=== PATIENT | male | born 1965 | race Caucasian/White ===

== ENCOUNTER 2016-08-21 16:02 | Inpatient (IN) | payer OTHER ==
[~2016-08-21] VITALS: Ht 182.9 cm; Wt 165.7 kg
--- NOTE | 2016-08-21 18:56 | EMERGENCY ROOM VISIT NOTE ---
History Report prepared by Rudy: Elisha Hobson Under the Supervision of: Dr. Nik Villarreal D.O. First contact with patient: 18:06 Chief Complaint: SHORTNESS OF BREATH Stated Complaint: SHORTNESS OF BREATH Nursing Triage Summary: Patient ambulatory to triage with a steady and upright gait, states "I can't breathe. This started a couple of days ago and has been getting worse. I wonder if I have PNX because my lungs feel congested. It's really bad today. Once in a while, I cough but am not bringing anything up with it." Patient reports burning in the center of his chest when the shortness of breath starts. Patient reports shortness of breath with exertion. History of Present Illness The patient is a 51 year old male who presents to the Emergency Room with complaints of constant shortness of breath beginning 2 days ago. The patient states that the shortness of breath came on suddenly with exertion 2 days ago. 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 He complains of chest burning with shortness of breath, and a non-productive occasional cough. He notes that his shortness of breath is completely resolved with rest. The patient denies any fever, chills, chest pain, nausea, vomiting, swelling in the legs, recent travel, weight gain, history of blood clots, and pain in the legs. He notes that he has a history of sleep apnea and hypertension. Source of History: patient Onset: 2 days ago Position: other (global) Quality: other (SOB) Timing: constant Modifying Factors (Worsening): exertion Modifying Factors (Relieving): rest Associated Symptoms: + cough, No fevers, No chills, No chest pain, No nausea , No vomiting Note: Pt complains of chest burning with SOB. The patient denies any swelling in the legs, recent travel, weight gain, history of blood clots, and pain in the legs Review of Systems See HPI for pertinent positives & negatives. A total of 10 systems reviewed and were otherwise negative. Past Medical & Surgical Medical Problems: (1) Hypertension Family History No pertinent family history stated. Social History Smoking Status: Never Smoker Smokeless Tobacco Use: No Alcohol Use: occasionally Drug Use: none Marital Status: Occupation Status: employed Current/Historical Medications Scheduled Fenofibrate (Tricor ), 134 MG PO DAILY Lisinopril (Zestril), 20 MG PO DAILY Simvastatin (Zocor), 20 MG PO QPM Triamterene/Hctz (Triamterene/Hydrochloroth), 0.5 TAB PO DAILY Allergies Coded Allergies: Penicillins (Verified Allergy, Mild, Hives, 08/21/16) Physical Exam Vital Signs Date Time Temp Pulse Resp B/P (MAP) Pulse Ox O2 Delivery O2 Flow Rate FiO2 08/21/16 23:25 77 23 118/68 100 Non-Rebreather 15.0 08/21/16 23:21 75 08/21/16 22:26 78 21 111/68 94 Room Air 08/21/16 21:45 65 32 08/21/16 21:40 67 14 08/21/16 21:00 77 14 109/81 92 Room Air 08/21/16 20:00 81 13 118/78 92 Room Air 08/21/16 19:04 79 08/21/16 18:52 Room Air 08/21/16 18:52 80 17 101/63 92 Room Air 08/21/16 16:14 93 Room Air 08/21/16 16:11 36.7 84 20 121/79 92 Room Air Physical Exam GENERAL: Patient is awake, alert, and in no acute distress. Patient is resting comfortably and showing no signs of anxiety EYES: The conjunctivae are clear. The pupils are round and reactive. EARS, NOSE, MOUTH AND THROAT: The nose is without any evidence of any deformity. Mucous membranes are moist tongue is midline NECK: The neck is nontender and supple. RESPIRATORY: Normal respiratory effort is noted there is no evidence of wheezing rhonchi or rales CARDIOVASCULAR: Regular rate and rhythm noted there no murmurs rubs or gallops normal S1 normal S2 GASTROINTESTINAL: The abdomen is soft. Bowel sounds are present in all quadrants. Abdomen is nontender MUSCULOSKELETAL/EXTREMITIES: There is no evidence of gross deformity full range of motion is noted in the hips and shoulders SKIN: There is no obvious evidence of any rash. There are no petechiae, pallor or cyanosis noted. Trace pedal edema noted bilaterally, no calf tenderness elicited NEUROLOGIC: Patient is awake alert and oriented x3 Medical Decision & Procedures ER Provider Diagnostic Interpretation: Radiology results as stated below per my review and radiologist interpretation: CHEST ONE VIEW PORTABLE FINDINGS: The heart is at the upper limits of normal in size. There is mild prominence of the proximal right pulmonary artery. This could indicate pulmonary arterial hypertension. There is no focal pulmonary consolidation. There are no pleural effusions. There is no pneumothorax. There is no failure.[ IMPRESSION: AP portable study. No evidence of focal pulmonary consolidation. No evidence of failure. Electronically signed by: Mainor Payton M.D. 08/21/2016 7:17 PM Dictated Date/Time: 08/21/2016 7:[address] ANGIOGRAM OF THE CHEST FINDINGS: No pathologically enlarged axillary mediastinal or hilar lymph nodes were visualized. There was no evidence of thoracic aortic dilatation. There are large bilateral pulmonary artery filling defects involving both upper lobes right middle lobe and both lower lobes. No pleural effusions are visualized. There was no evidence of focal pulmonary consolidation. There is a 4 mm solid right lower lobe pulmonary nodule, as visualized in image #[id number].. IMPRESSION: 1. Moderately extensive bilateral pulmonary emboli. 2. 4 mm solid right lower lobe pulmonary nodule Please refer to below summary of Fleischner criteria recommendations for follow-up of incidental CT nodules (Carloz Rush, Guidelines for management of small pulmonary nodules detected on CT scans: A statement from the Fleischner Society, Radiology 237: [phone].) SOLID NODULES Solitary nodule size: <6 mm * low risk patients: no follow-up needed * high risk patients: optional CT at 12 months Solitary nodule size: 6-8 mm * low risk patients: follow-up at 6-12 months, then consider further follow-up at 18-24 months * high risk patients: initial follow-up CT at 6-12 months and then at 18-24 months if no change Solitary nodule size: >8 mm * either low or high risk patients - consider follow-up CT at 3 months, and/or CT-PET, and/or biopsy Multiple nodules size: <6 mm * low risk patients: no routine follow-up * high risk patients: optional CT at 12 months Multiple nodules size: 6-8 mm * low risk patients: follow-up at 3-6 months, then consider further follow-up at 18-24 months * high risk patients: follow-up at 3-6 months, then at 18-24 months if no change Multiple nodules size: >8 mm * low risk patients: follow-up at 3-6 months, then consider further follow-up at 18-24 months * high risk patients: follow-up at 3-6 months, then at 18-24 months if no change Note: newly detected indeterminate nodule in persons 35 years of age or older. * low risk patients: minimal or absent history of smoking and/or other known risk factors * high risk patients: history of smoking or of other known risk factors (e.g. first degree relative with lung cancer, or exposure to asbestos, radon, uranium) * if a nodule up to 8 mm is partly solid or is ground glass further follow-up is required after 24 months to exclude possible slow growing adenocarcinoma ([facility]) SUBSOLID NODULES Solitary pure ground-glass nodule * nodule size <6 mm - no CT follow-up required * nodule size >=6 mm - follow-up CT at 6-12 months, then every 2 years until 5 years Solitary part-solid nodule * nodule size <6 mm - no CT follow-up required * nodule size >=6 mm - follow-up CT at 3-6 months. If unchanged, and solid component remains <6 mm, then annual follow-up for 5 years Multiple subsolid nodules * nodule size <6 mm - follow-up CT at 3-6 months, consider further follow-up at 2 and 4 years if stable * nodule size >=6 mm - follow-up CT at 3-6 months, subsequent management based on the most suspicious nodule(s) Electronically signed by: Mainor Payton M.D. 08/21/2016 9:27 PM Dictated Date/Time: 08/21/2016 9:[address] FACIAL BONES-MXILLOFAC WITHOUT COMPARISON STUDY: No previous studies for comparison. TECHNIQUE: Helical images were acquired in the transverse plane. The study was reviewed and analyzed on the independent 3-D workstation. The pterygoid plates appear intact. The zygomatic arches appear intact. The globes appear intact. 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 There are comminuted nasal bone fractures. There is a nondepressed right orbital floor fracture. There is no evidence of intramuscular entrapment The mandibular condyles appear intact. IMPRESSION: 1. Comminuted nasal bone fractures 2. Nondepressed right orbital floor fracture Electronically signed by: Mainor Payton M.D. 08/21/2016 10:21 PM Dictated Date/Time: 08/21/2016 10:[address] HEAD WITHOUT CONTRAST (CT) FINDINGS: No intra or extra-axial mass lesions are visualized. There is no CT evidence of acute cortical infarction. There is no evidence of midline shift. There is no acute hemorrhage. No calvarial fractures are visualized. There are patchy white matter hypodensities likely on a small vessel basis. There is no evidence of pathologic ventricular dilatation. There is a right maxillary sinus air-fluid level. There are nasal bone fractures. There is a probable right maxillary sinus fracture. 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 There is a cavum septa pellucida and cavum vergae. There is vascular enhancement secondary to a prior CT angiographic study of the chest There are distal vertebral calcifications. IMPRESSION: 1. Nasal bone fractures and possible right maxillary sinus fracture. 2. No evidence of acute intracranial injury. Electronically signed by: Mainor Payton M.D. 08/21/2016 10:15 PM Dictated Date/Time: 08/21/2016 10:[address] OF THE CERVICAL SPINE FINDINGS: The visualized portions of the lung apices reveal no evidence of pneumothorax. There is opacification of the right maxilla sinus The prevertebral soft tissues are normal. No fractures or subluxations are visualized. There are vertebral artery calcifications. IMPRESSION: No evidence of acute fracture or traumatic subluxation. Electronically signed by: Mainor Payton M.D. 08/21/2016 10:18 PM Dictated Date/Time: 08/21/2016 10:16 PM Laboratory Results 08/21/16 19:00 Red Blood Count 5.05, Mean Corpuscular Volume 85.7, Mean Corpuscular Hemoglobin 28.7, Mean Corpuscular Hemoglobin Concent 33.5, Mean Platelet Volume 9.8, Neutrophils (%) (Auto) 64.2, Lymphocytes (%) (Auto) 23.5, Monocytes (%) (Auto) 8.3, Eosinophils (%) (Auto) 3.6, Basophils (%) (Auto) 0.2, Neutrophils # (Auto) 5.95, Lymphocytes # (Auto) 2.18, Monocytes # (Auto) 0.77, Eosinophils # (Auto) 0.33, Basophils # (Auto) 0.02 08/21/16 19:00 Test 08/21/16 19:00 White Blood Count 9.27 K/uL (4.8-10.8) Red Blood Count 5.05 M/uL (4.7-6.1) Hemoglobin 14.5 g/dL (14.0-18.0) Hematocrit 43.3 % (42-52) Mean Corpuscular Volume 85.7 fL (80-100) Mean Corpuscular Hemoglobin 28.7 pg (25-34) Mean Corpuscular Hemoglobin Concent 33.5 g/dl (32-36) Platelet Count 207 K/uL (130-400) Mean Platelet Volume 9.8 fL (7.4-10.4) Neutrophils (%) (Auto) 64.2 % Lymphocytes (%) (Auto) 23.5 % Monocytes (%) (Auto) 8.3 % Eosinophils (%) (Auto) 3.6 % Basophils (%) (Auto) 0.2 % Neutrophils # (Auto) 5.95 K/uL (1.4-6.5) Lymphocytes # (Auto) 2.18 K/uL (1.2-3.4) Monocytes # (Auto) 0.77 K/uL (0.11-0.59) Eosinophils # (Auto) 0.33 K/uL (0-0.5) Basophils # (Auto) 0.02 K/uL (0-0.2) RDW Standard Deviation 45.4 fL (36.4-46.3) RDW Coefficient of Variation 14.7 % (11.5-14.5) Immature Granulocyte % (Auto) 0.2 % Immature Granulocyte # (Auto) 0.02 K/uL (0.00-0.02) Prothrombin Time 10.9 SECONDS (9.0-12.0) Prothromb Time International Ratio 1.0 (0.9-1.1) Activated Partial Thromboplast Time 26.0 SECONDS (21.0-31.0) Partial Thromboplastin Ratio 1.0 D-Dimer 8410 ug/L FEU (0-500) Anion Gap 7.0 mmol/L (3-11) Est Creatinine Clear Calc Drug Dose 112.1 ml/min Estimated GFR () 79.5 Estimated GFR (Non- 68.6 BUN/Creatinine Ratio 12.4 (10-20) Calcium Level 9.1 mg/dl (8.5-10.1) Total Bilirubin 0.3 mg/dl (0.2-1) Aspartate Amino Transf (AST/SGOT) 27 U/L (15-37) Alanine Aminotransferase (ALT/SGPT) 50 U/L (12-78) Alkaline Phosphatase 72 U/L (45-117) Troponin I 0.074 ng/ml (0-0.045) Pro-B-Type Natriuretic Peptide 3393 pg/ml (0-900) Total Protein 7.5 gm/dl (6.4-8.2) Albumin 3.0 gm/dl (3.4-5.0) Globulin 4.5 gm/dl (2.5-4.0) Albumin/Globulin Ratio 0.7 (0.9-2) Laboratory results per my review. Medications Administered Medications (Trade) Dose Ordered Sig/Narcisa Route Start Time Stop Time Status Last Admin Dose Admin Aspirin (Aspirin Chew) 324 mg NOW STAT PO 08/21/16 19:59 08/21/16 20:00 DC 08/21/16 20:04 324 MG Sodium Chloride 1,000 ml @ 999 mls/hr Q1H1M STAT IV 08/21/16 21:31 08/21/16 22:31 DC 08/21/16 22:26 999 MLS/HR Heparin Sodium/ Dextrose (Heparin 25,000 Unit/500ml D5W) 25,000 unit STK-MED ONCE .ROUTE 08/21/16 22:53 08/21/16 22:54 DC 08/21/16 23:25 25,000 UNIT Procedure Location: Right infraorbital region Total length: 2cm Complexity: Simple Verbal consent was obtained after the risks and benefits were explained, including but not limited to bleeding, scarring, infection, pain, and bone/joint /nerve damage. At this time, the risks of the procedure are less than the risks of NOT performing the procedure. A time out was taken and the correct patient and site identified. The skin was prepped with betadine. The target area was anesthetized with 6 ml of 1% lidocaine without epinephrine. Copious irrigation was performed using normal saline. The skin was re-prepped with betadine and a sterile field set. The wound was explored for foreign bodies and none found. Examination revealed no injury to deep structures such as tendons, bone, or significant blood vessels. Debridement was not performed. The wound edges were approximated using 5, 5-0 simple interrupted nylon sutures. Hemostasis and excellent approximation was achieved. Antibacterial ointment and a sterile dressing applied. Detailed wound care instructions and signs and symptoms of infection reviewed with the patient. No complications and the patient tolerated the procedure well. ECG Indication: SOB/dyspnea Rate (beats per minute): 78 Rhythm: normal sinus Findings: T-wave inversion (Anterior), no ectopy Comparison ECG Date: no prior available ED Course 1805: The patient was evaluated in room A4B. A complete history and physical examination were performed. 1958: Aspirin 324mg PO. 2155: I updated and reevaluated the patient. 2008: I discussed the patient's case with Dr. Deshpande. The patient will be evaluated for further management. 2014: Upon reevaluation, the patient is doing well. I discussed results and treatment plan with the patient. He verbalizes agreement and understanding. I spoke with Dr. Deshpande of [facility]. The patient will be evaluated for further management and care. 2129: Heparin Sodium/Dextrose 1 ea. 2130: NSS 1,000 ml @ 999 mls/hr IV. 2139: The patient went to the bathroom and had a syncopal episode and fell onto his face. 2144: Lidocaine/Epinephrine 20ml INFIL. 2241: I spoke to Dr. Fuentes. He agreed that he will follow the patient and agrees with no bolus with the Heparin at this time. Medical Decision Differential diagnosis: Etiologies such as infections, reactive airway disease, pneumonia, pneumothorax , COPD, CHF, cardiac ischemia, pulmonary embolism, musculoskeletal, gastrointestinal, as well as others were entertained. Medication Reconciliation: I attest that I have personally reviewed the patient' s current medications list. Blood pressure screening: Patient was found to have normal blood pressure on screening and does not require follow-up. The patient is a 51-year-old male who presented to emergency department with a family member for an evaluation of dyspnea on exertion. The patient did not have significant tachycardia but had significant shortness of breath with any exertion. The patient had an EKG which did show T-wave abnormalities anteriorly. Initially I felt his condition was secondary to an acute coronary syndrome. The patient did have an elevated troponin. I discussed the patient's laboratory and radiographic studies with him. He was treated with aspirin in the emergency department. I discussed his case with the on-call [facility] hospitalist. They've agreed to evaluate the patient in the emergency department for further management and disposition. Given the patient's degree of shortness of breath and d-dimer was also ordered. This was elevated so a CT the chest was obtained. The patient had a CT the chest which did show signs of significant pulmonary embolism. IV heparin was ordered. The patient got out of bed on his own to go to the bathroom. Upon getting back into the bed the patient had a syncopal episode falling and striking his face on the floor. He had significant facial injury including facial contusion facial laceration and epistaxis as well as nasal bone fractures and orbital floor fractures. The patient was reevaluated after this occurred. Heparin was held until CTs of the head neck and facial bones could be obtained. I discussed the CT reports with the on-call oral maxillofacial specialist. At this time we will give the patient IV heparin without a bolus and continue to monitor him for any other worsening symptoms. I discussed this with the patient and at this time I feel the benefits outweigh the risks for anticoagulation. [facility] The patient was placed on a nonrebreather mask. The facial laceration was sutured. Consults Time Called: 2005 Consulting Physician: Dr. Jeramy Mayes Returned Call: 2008 I discussed the patient's case with Dr. Deshpande. The patient will be evaluated for further management. Additional Consults: Time Called: 2239 Consulted Physician: Dr. Fuentes Returned Call: [id number] Additional Comments: I spoke to Dr. Fuentes. He agreed that he will follow the patient and agrees with no bolus with the Heparin at this time. Impression Primary Impression: Pulmonary embolism Additional Impressions: Abnormal EKG Elevated troponin SOB (shortness of breath) Syncope Facial laceration Nasal bone fractures Orbital floor fracture Critical Care I have personally spent greater than 60 minutes of critical care time in the direct management of this patient. This includes bedside care, interpretation of diagnostic studies, and testing, discussion with consultants, patient, and family members, and other required patient management activities. This 60 minutes is in excess of all separately billable procedures. Scribe Attestation The scribe's documentation has been prepared under my direction and personally reviewed by me in its entirety. I confirm that the note above accurately reflects all work, treatment, procedures, and medical decision making performed by me. Departure Information Dispostion Being Evaluated By Hospitalist Laura Brennan M.D. (PCP) Patient Instructions My [facility] Problem Qualifiers Primary Impression: Pulmonary embolism Pulmonary embolism type: saddle Chronicity: acute Acute cor pulmonale presence: with acute cor pulmonale Qualified Codes: I26.02 - Saddle embolus of pulmonary artery with acute cor pulmonale Additional Impressions: Syncope Syncope type: unspecified Qualified Codes: R55 - Syncope and collapse Facial laceration Encounter type: initial encounter Qualified Codes: S01.81XA - Laceration without foreign body of other part of head, initial encounter Nasal bone fractures Encounter type: initial encounter Fracture type: closed Qualified Codes: S02.2XXA - Fracture of nasal bones, initial encounter for closed fracture Orbital floor fracture Encounter type: initial encounter Fracture type: closed Laterality: right Qualified Codes: S02.31XA - Fracture of orbital floor, right side, initial encounter for closed fracture
[2016-08-21] MEDS ORDERED: FENO134C2 PO (19:13)
[2016-08-21] MEDS ORDERED: SIMV20TA2 PO (19:13)
[2016-08-21] MEDS ORDERED: MXZ/ PO (19:13)
[2016-08-21] MEDS ORDERED: LISI-725 PO (19:13)
[2016-08-21 19:15] LABS: BASO % 0.2 %; BASO ABS # 0.02 K/uL (0-0.2); COMPLETE YES; EOS % 3.6 %; HEMATOCRIT 43.3 % (42-52); IG% 0.2 %; LYMPH % 23.5 %; LYMPH ABS # 2.18 K/uL (1.2-3.4); MEAN CELL VOLUME 85.7 fL (80-100); MEAN CORPUSCULAR HEMOGLOBIN 28.7 pg (25-34); MEAN CORPUSCULAR HGB CONC 33.5 g/dl (32-36); MEAN PLATELET VOLUME 9.8 fL (7.4-10.4); MONO % 8.3 %; NEUT % 64.2 %; PLATELET COUNT 207 K/uL (130-400); RED BLOOD COUNT 5.05 M/uL (4.7-6.1); WHITE BLOOD COUNT 9.27 K/uL (4.8-10.8)
--- NOTE | 2016-08-21 19:18 | DIAGNOSTIC IMAGING REPORT ---
CHEST ONE VIEW PORTABLE CLINICAL HISTORY: Respiratory failure. Shortness of breath. COMPARISON STUDY: No previous studies for comparison. FINDINGS: The heart is at the upper limits of normal in size. There is mild prominence of the proximal right pulmonary artery. This could indicate pulmonary arterial hypertension. There is no focal pulmonary consolidation. There are no pleural effusions. There is no pneumothorax. There is no failure.[ IMPRESSION: AP portable study. No evidence of focal pulmonary consolidation. No evidence of failure. Electronically signed by: Mainor Payton M.D. 08/21/2016 7:17 PM Dictated Date/Time: 08/21/2016 7:16 PM
[2016-08-21 19:25] LABS: PROTHROMBIN TIME (PATIENT) 10.9 SECONDS (9.0-12.0)
[2016-08-21 19:33] LABS: BUN/CREATININE RATIO 12.4 (10-20); CALCIUM 9.1 mg/dl (8.5-10.1); CREATININE 1.2 mg/dl (0.60-1.40); POTASSIUM 4.2 mmol/L (3.5-5.1)
[2016-08-21 19:48] LABS: ALB/GLOB RATIO 0.7 (0.9-2)
[2016-08-21] MEDS ORDERED: ASPIRIN 81 MG CHEW PO STA (19:59)
[2016-08-21] MEDS ORDERED: OPTIRAY 320 IV PRN (21:00)
--- NOTE | 2016-08-21 21:28 | DIAGNOSTIC IMAGING REPORT ---
CT ANGIOGRAM OF THE CHEST CLINICAL HISTORY: Atypical chest pain. Shortness of breath. COMPARISON STUDY: Chest x-ray dated 08/21/2016 TECHNIQUE: Following the IV administration of 116 mL of Optiray-320, CT angiogram of the thorax was performed from the thoracic inlet to the lung bases utilizing the pulmonary embolus protocol. Images are reviewed in the axial, sagittal, and coronal planes. IV contrast was administered without complication. MIP imaging was performed. CT DOSE: 887.14 mGy.cm FINDINGS: No pathologically enlarged axillary mediastinal or hilar lymph nodes were visualized. There was no evidence of thoracic aortic dilatation. There are large bilateral pulmonary artery filling defects involving both upper lobes right middle lobe and both lower lobes. No pleural effusions are visualized. There was no evidence of focal pulmonary consolidation. There is a 4 mm solid right lower lobe pulmonary nodule, as visualized in image #[id number].. IMPRESSION: 1. Moderately extensive bilateral pulmonary emboli. 2. 4 mm solid right lower lobe pulmonary nodule Please refer to below summary of Fleischner criteria recommendations for follow-up of incidental CT nodules (Carloz Rush, Guidelines for management of small pulmonary nodules detected on CT scans: A statement from the Fleischner Society, Radiology 237: [phone].) SOLID NODULES Solitary nodule size: <6 mm * low risk patients: no follow-up needed * high risk patients: optional CT at 12 months Solitary nodule size: 6-8 mm * low risk patients: follow-up at 6-12 months, then consider further follow-up at 18-24 months * high risk patients: initial follow-up CT at 6-12 months and then at 18-24 months if no change Solitary nodule size: >8 mm * either low or high risk patients - consider follow-up CT at 3 months, and/or CT-PET, and/or biopsy Multiple nodules size: <6 mm * low risk patients: no routine follow-up * high risk patients: optional CT at 12 months Multiple nodules size: 6-8 mm * low risk patients: follow-up at 3-6 months, then consider further follow-up at 18-24 months * high risk patients: follow-up at 3-6 months, then at 18-24 months if no change Multiple nodules size: >8 mm * low risk patients: follow-up at 3-6 months, then consider further follow-up at 18-24 months * high risk patients: follow-up at 3-6 months, then at 18-24 months if no change Note: newly detected indeterminate nodule in persons 35 years of age or older. * low risk patients: minimal or absent history of smoking and/or other known risk factors * high risk patients: history of smoking or of other known risk factors (e.g. first degree relative with lung cancer, or exposure to asbestos, radon, uranium) * if a nodule up to 8 mm is partly solid or is ground glass further follow-up is required after 24 months to exclude possible slow growing adenocarcinoma (MARKELL) SUBSOLID NODULES Solitary pure ground-glass nodule * nodule size <6 mm - no CT follow-up required * nodule size >=6 mm - follow-up CT at 6-12 months, then every 2 years until 5 years Solitary part-solid nodule * nodule size <6 mm - no CT follow-up required * nodule size >=6 mm - follow-up CT at 3-6 months. If unchanged, and solid component remains <6 mm, then annual follow-up for 5 years Multiple subsolid nodules * nodule size <6 mm - follow-up CT at 3-6 months, consider further follow-up at 2 and 4 years if stable * nodule size >=6 mm - follow-up CT at 3-6 months, subsequent management based on the most suspicious nodule(s) Electronically signed by: Mainor Payton M.D. 08/21/2016 9:27 PM Dictated Date/Time: 08/21/2016 9:22 PM
[2016-08-21] MEDS ORDERED: SODIUM CHLORIDE 0.9% 1000ML 1,000 ML IV STA (21:31)
[2016-08-21] MEDS ORDERED: LIDOCAINE/EPINEPHRINE 1% 20 ML VIAL INFIL ONE (21:45)
--- NOTE | 2016-08-21 22:16 | DIAGNOSTIC IMAGING REPORT ---
CT HEAD WITHOUT CONTRAST (CT) CLINICAL HISTORY: Head pain status post head trauma. Pulmonary embolism. COMPARISON STUDY: No previous studies for comparison. TECHNIQUE: Axial CT of the brain is performed from the vertex to the skull base. IV contrast was not administered for this examination. CT DOSE: 1682.88 mGy.cm FINDINGS: No intra or extra-axial mass lesions are visualized. There is no CT evidence of acute cortical infarction. There is no evidence of midline shift. There is no acute hemorrhage. No calvarial fractures are visualized. There are patchy white matter hypodensities likely on a small vessel basis. There is no evidence of pathologic ventricular dilatation. There is a right maxillary sinus air-fluid level. There are nasal bone fractures. There is a probable right maxillary sinus fracture. 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 There is a cavum septa pellucida and cavum vergae. There is vascular enhancement secondary to a prior CT angiographic study of the chest There are distal vertebral calcifications. IMPRESSION: 1. Nasal bone fractures and possible right maxillary sinus fracture. 2. No evidence of acute intracranial injury. Electronically signed by: Mainor Payton M.D. 08/21/2016 10:15 PM Dictated Date/Time: 08/21/2016 10:12 PM
--- NOTE | 2016-08-21 22:19 | DIAGNOSTIC IMAGING REPORT ---
CT OF THE CERVICAL SPINE CLINICAL HISTORY: Neck pain status post trauma COMPARISON STUDY: No previous studies for comparison. CT DOSE: TECHNIQUE: CT scan of the cervical spine was performed from the skull base to the thoracic inlet. Images are reviewed in the axial, sagittal, and coronal planes. IV contrast was not administered for this examination. FINDINGS: The visualized portions of the lung apices reveal no evidence of pneumothorax. There is opacification of the right maxilla sinus The prevertebral soft tissues are normal. No fractures or subluxations are visualized. There are vertebral artery calcifications. IMPRESSION: No evidence of acute fracture or traumatic subluxation. Electronically signed by: Mainor Payton M.D. 08/21/2016 10:18 PM Dictated Date/Time: 08/21/2016 10:16 PM
--- NOTE | 2016-08-21 22:22 | DIAGNOSTIC IMAGING REPORT ---
CT FACIAL BONES-MXILLOFAC WITHOUT CT DOSE: CLINICAL HISTORY: Facial pain status post trauma COMPARISON STUDY: No previous studies for comparison. TECHNIQUE: Helical images were acquired in the transverse plane. The study was reviewed and analyzed on the independent 3-D workstation. The pterygoid plates appear intact. The zygomatic arches appear intact. The globes appear intact. 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 There are comminuted nasal bone fractures. There is a nondepressed right orbital floor fracture. There is no evidence of intramuscular entrapment The mandibular condyles appear intact. IMPRESSION: 1. Comminuted nasal bone fractures 2. Nondepressed right orbital floor fracture Electronically signed by: Mainor Payton M.D. 08/21/2016 10:21 PM Dictated Date/Time: 08/21/2016 10:18 PM
[2016-08-21] MEDS ORDERED: HEPARIN 25000 UNIT/500 ML D5W ONE (22:53)
[2016-08-22] VITALS (15 sets, daily range): BP systolic 95–127; BP diastolic 51–88; PULSE 63–82; TEMP 36.3–36.6; O2SAT 90–99; Ht 182.9 cm; Wt 165.7 kg
[2016-08-22] MEDS ORDERED: SODIUM CHLORIDE 0.9% 1000ML 1,000 ML IV SCH (00:32)
[2016-08-22] MEDS ORDERED: ALUMINUM/MAGNESIUM/SIMETH (MAALOX MAX) 30 ML UDC PO PRN (00:45)
[2016-08-22] MEDS ORDERED: ONDANSETRON INJ 2 MG/ML 2 ML VIAL IV PRN (00:45)
[2016-08-22] MEDS ORDERED: ACETAMINOPHEN 325 MG TAB PO PRN (00:45)
[2016-08-22] MEDS ORDERED: POLYETHYLENE (MIRALAX) 17 GM PACK PO PRN (00:45)
[2016-08-22] MEDS ORDERED: MAGNESIUM HYDROXIDE SUSP 30 ML UDC PO PRN (00:45)
--- NOTE | 2016-08-22 02:37 | History and Physical ---
History & Physical Date & Time of Service: Aug 22, 2016 at 02:16 Chief Complaint: Facial Laceration,Nasal Bone Fractures,Pe Primary Care Physician: Laura Shelton M.D. History of Present Illness Source: patient, family This is a 51 year old obese male with a history of HTN, HLD presents with a few day history of dyspnea on exertion; states that he's had issues with his breathing nocturnally; but now exertion causes an issue. Upon presentation, noted to be hypoxic - d-dimer elevated. He had a CT of the chest and it showed acute bilateral PEs. Patient was doing okay in the ER, but then had a fall in the ER - he does not know why he fell, he was going to the bathroom, came back into bed, and then he fell forward onto his face. Developed nose bleed and R orbit laceration. CT of the facial bones showed orbital fracture and nasal fracture. Developed epistaxis which improved with pressure. After speaking with oromaxillofacial product management consultant, it was decided that we could start IV heparin. Patient is doing better after IV heparin started. No other complaints. Past Medical/Surgical History Medical Problems: (1) Hypertension Status: Chronic Social History Smoking Status: Never Smoker Smokeless Tobacco Use: No Drug Use: none Marital Status: Occupational Status: employed Allergies Coded Allergies: Penicillins (Verified Allergy, Mild, Hives, 08/21/16) Home Medications Scheduled Fenofibrate (Tricor ), 134 MG PO DAILY Lisinopril (Zestril), 20 MG PO DAILY Simvastatin (Zocor), 20 MG PO QPM Triamterene/Hctz (Triamterene/Hydrochloroth), 0.5 TAB PO DAILY Review of Systems Constitutional: No fever, No chills, No sweats, No weight loss, No weakness, No fatigue Respiratory: + shortness of breath, + dyspnea on exertion, No cough, No sputum , No wheezing, No dyspnea at rest, No hemoptysis Cardiovascular: No chest pain, No orthopnea, No edema, No palpitations Abdomen: No pain, No nausea, No vomiting, No diarrhea, No constipation Musculoskeletal: No joint pain, No muscle pain Genitourinary - Male: No hematuria, No dysuria, No urinary frequency, No urinary urgency Psychiatric: No depression symptoms, No anxiety, No insomnia Hematologic / Lymphatic: No abnormal bleeding/bruising Integumentary: No rash Allergic / Immunologic: No environmental allergies, No seasonal allergies Physical Exam Vital Signs Date Time Temp Pulse Resp B/P (MAP) Pulse Ox O2 Delivery O2 Flow Rate FiO2 08/22/16 01:24 36.6 71 22 124/83 91 Room Air 08/22/16 01:01 70 17 128/71 100 08/22/16 00:15 69 24 136/73 99 Non-Rebreather 15.0 08/21/16 23:25 77 23 118/68 100 Non-Rebreather 15.0 08/21/16 23:21 75 08/21/16 22:26 78 21 111/68 94 Room Air 08/21/16 21:45 65 32 08/21/16 21:40 67 14 08/21/16 21:00 77 14 109/81 92 Room Air 08/21/16 20:00 81 13 118/78 92 Room Air 08/21/16 19:04 79 08/21/16 18:52 Room Air 08/21/16 18:52 80 17 101/63 92 Room Air 08/21/16 16:14 93 Room Air 08/21/16 16:11 36.7 84 20 121/79 92 Room Air General Appearance: no apparent distress, + obese Head: + pertinent finding (R orbital bruising/swelling, laceration at inferior orbit, s/p sutures; nasal bruising) ENT: hearing grossly normal Neck: supple Respiratory/Chest: chest non-tender, lungs clear, normal breath sounds, no respiratory distress, no accessory muscle use Cardiovascular: regular rate, rhythm, no edema, no murmur, normal peripheral pulses Abdomen/GI: normal bowel sounds, non tender, soft Extremities/Musculoskelatal: no calf tenderness, normal capillary refill, no pedal edema Neurologic/Psych: no motor/sensory deficits, alert, normal mood/affect Skin: normal color Lymphatic: no adenopathy Diagnostics Laboratory Results Results Past 24 Hours Test 08/21/16 19:00 08/22/16 01:36 Range/Units White Blood Count 9.27 4.8-10.8 K/uL Red Blood Count 5.05 4.7-6.1 M/uL Hemoglobin 14.5 14.0-18.0 g/dL Hematocrit 43.3 42-52 % Mean Corpuscular Volume 85.7 80-100 fL Mean Corpuscular Hemoglobin 28.7 25-34 pg Mean Corpuscular Hemoglobin Concent 33.5 32-36 g/dl Platelet Count 207 130-400 K/uL Mean Platelet Volume 9.8 7.4-10.4 fL Neutrophils (%) (Auto) 64.2 % Lymphocytes (%) (Auto) 23.5 % Monocytes (%) (Auto) 8.3 % Eosinophils (%) (Auto) 3.6 % Basophils (%) (Auto) 0.2 % Neutrophils # (Auto) 5.95 1.4-6.5 K/uL Lymphocytes # (Auto) 2.18 1.2-3.4 K/uL Monocytes # (Auto) 0.77 0.11-0.59 K/uL Eosinophils # (Auto) 0.33 0-0.5 K/uL Basophils # (Auto) 0.02 0-0.2 K/uL RDW Standard Deviation 45.4 36.4-46.3 fL RDW Coefficient of Variation 14.7 11.5-14.5 % Immature Granulocyte % (Auto) 0.2 % Immature Granulocyte # (Auto) 0.02 0.00-0.02 K/uL Prothrombin Time 10.9 9.0-12.0 SECONDS Prothromb Time International Ratio 1.0 0.9-1.1 Activated Partial Thromboplast Time 26.0 21.0-31.0 SECONDS Partial Thromboplastin Ratio 1.0 D-Dimer 8410 0-500 ug/L FEU Sodium Level 138 136-145 mmol/L Potassium Level 4.2 3.5-5.1 mmol/L Chloride Level 104 98-107 mmol/L Carbon Dioxide Level 27 21-32 mmol/L Anion Gap 7.0 3-11 mmol/L Blood Urea Nitrogen 15 7-18 mg/dl Creatinine 1.20 0.60-1.40 mg/dl Est Creatinine Clear Calc Drug Dose 112.1 ml/min Estimated GFR () 79.5 Estimated GFR (Non- 68.6 BUN/Creatinine Ratio 12.4 10-20 Random Glucose 100 70-99 mg/dl Calcium Level 9.1 8.5-10.1 mg/dl Total Bilirubin 0.3 0.2-1 mg/dl Aspartate Amino Transf (AST/SGOT) 27 15-37 U/L Alanine Aminotransferase (ALT/SGPT) 50 12-78 U/L Alkaline Phosphatase 72 45-117 U/L Troponin I 0.074 0-0.045 ng/ml Pro-B-Type Natriuretic Peptide 3393 0-900 pg/ml Total Protein 7.5 6.4-8.2 gm/dl Albumin 3.0 3.4-5.0 gm/dl Globulin 4.5 2.5-4.0 gm/dl Albumin/Globulin Ratio 0.7 0.9-[address] ANGIOGRAM OF THE CHEST CLINICAL HISTORY: Atypical chest pain. Shortness of breath. COMPARISON STUDY: Chest x-ray dated 08/21/2016 TECHNIQUE: Following the IV administration of 116 mL of Optiray-320, CT angiogram of the thorax was performed from the thoracic inlet to the lung bases utilizing the pulmonary embolus protocol. Images are reviewed in the axial, sagittal, and coronal planes. IV contrast was administered without complication. MIP imaging was performed. CT DOSE: 887.14 mGy.cm FINDINGS: No pathologically enlarged axillary mediastinal or hilar lymph nodes were visualized. There was no evidence of thoracic aortic dilatation. There are large bilateral pulmonary artery filling defects involving both upper lobes right middle lobe and both lower lobes. No pleural effusions are visualized. There was no evidence of focal pulmonary consolidation. There is a 4 mm solid right lower lobe pulmonary nodule, as visualized in image #[id number].. IMPRESSION: 1. Moderately extensive bilateral pulmonary emboli. 2. 4 mm solid right lower lobe pulmonary nodule Please refer to below summary of Fleischner criteria recommendations for follow-up of incidental CT nodules (Carloz Rush, Guidelines for management of small pulmonary nodules detected on CT scans: A statement from the Fleischner Society, Radiology 237: [phone].) SOLID NODULES Solitary nodule size: <6 mm * low risk patients: no follow-up needed * high risk patients: optional CT at 12 months Solitary nodule size: 6-8 mm * low risk patients: follow-up at 6-12 months, then consider further follow-up at 18-24 months * high risk patients: initial follow-up CT at 6-12 months and then at 18-24 months if no change Solitary nodule size: >8 mm * either low or high risk patients - consider follow-up CT at 3 months, and/or CT-PET, and/or biopsy Multiple nodules size: <6 mm * low risk patients: no routine follow-up * high risk patients: optional CT at 12 months Multiple nodules size: 6-8 mm * low risk patients: follow-up at 3-6 months, then consider further follow-up at 18-24 months * high risk patients: follow-up at 3-6 months, then at 18-24 months if no change Multiple nodules size: >8 mm * low risk patients: follow-up at 3-6 months, then consider further follow-up at 18-24 months * high risk patients: follow-up at 3-6 months, then at 18-24 months if no change Note: newly detected indeterminate nodule in persons 35 years of age or older. * low risk patients: minimal or absent history of smoking and/or other known risk factors * high risk patients: history of smoking or of other known risk factors (e.g. first degree relative with lung cancer, or exposure to asbestos, radon, uranium) * if a nodule up to 8 mm is partly solid or is ground glass further follow-up is required after 24 months to exclude possible slow growing adenocarcinoma (MARKELL) SUBSOLID NODULES Solitary pure ground-glass nodule * nodule size <6 mm - no CT follow-up required * nodule size >=6 mm - follow-up CT at 6-12 months, then every 2 years until 5 years Solitary part-solid nodule * nodule size <6 mm - no CT follow-up required * nodule size >=6 mm - follow-up CT at 3-6 months. If unchanged, and solid component remains <6 mm, then annual follow-up for 5 years Multiple subsolid nodules * nodule size <6 mm - follow-up CT at 3-6 months, consider further follow-up at 2 and 4 years if stable * nodule size >=6 mm - follow-up CT at 3-6 months, subsequent management based on the most suspicious nodule(s) CT FACIAL BONES-MXILLOFAC WITHOUT CT DOSE: CLINICAL HISTORY: Facial pain status post trauma COMPARISON STUDY: No previous studies for comparison. TECHNIQUE: Helical images were acquired in the transverse plane. The study was reviewed and analyzed on the independent 3-D workstation. The pterygoid plates appear intact. The zygomatic arches appear intact. The globes appear intact. 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 There are comminuted nasal bone fractures. There is a nondepressed right orbital floor fracture. There is no evidence of intramuscular entrapment The mandibular condyles appear intact. IMPRESSION: 1. Comminuted nasal bone fractures 2. Nondepressed right orbital floor fracture EKG Normal sinus rhythm Possible Inferior infarct , age undetermined T wave abnormality, consider anterior ischemia Abnormal ECG No previous ECGs available Impression Assessment and Plan This is a 51 year old obese male with a history of HTN, HLD presents with acute bilateral PE; s/p fall and orbital/nasal fracture Acute Bilateral PE presented with dyspnea on exertion chest CT shows acute bilateral PE started on IV heparin for now hypercoag w/up pending echo ordered and pending pulmonary consultation oxygen as needed Fall s/p orbital and nasal fractures patient was doing well in the ER; then he fell, does not recall why or how developed epistaxis and fracture of nose and R orbit spoke with maxillary facial surgeon; okay with IV heparin, monitor for epistaxis may need ENT consultation if nosebleed develops HTN hold triamterene/HCTZ continue Lisinopril monitor BP HLD continue Zocor DVT ppx IV heparin FULL CODE Advanced Directives Existing Living Will: No Existing Power of Supervisor Correspondence Section: No VTE Prophylaxis VTE Risk Assessment Done? Y/N: Yes Risk Level: Moderate Given or contraindicated: Other Anticoagulation
[2016-08-22 05:55] LABS: HEMATOCRIT 42.2 % (42-52); MEAN CELL VOLUME 87.2 fL (80-100); MEAN CORPUSCULAR HEMOGLOBIN 28.9 pg (25-34); MEAN CORPUSCULAR HGB CONC 33.2 g/dl (32-36); PLATELET COUNT 196 K/uL (130-400); RED BLOOD COUNT 4.84 M/uL (4.7-6.1); WHITE BLOOD COUNT 9.36 K/uL (4.8-10.8)
[2016-08-22 06:11] LABS: PARTIAL THROMBOPLASTIN RATIO 1.3
[2016-08-22 06:33] LABS: BUN/CREATININE RATIO 11.9 (10-20); CALCIUM 8.7 mg/dl (8.5-10.1); CREATININE 1.2 mg/dl (0.60-1.40); POTASSIUM 4.3 mmol/L (3.5-5.1)
[2016-08-22] MEDS: HEPARIN 25,000 UNIT/500ML D5W 500 ML IV PRN ×3 (06:35→20:14)
[2016-08-22 06:47] LABS: CKMB/CK RATIO 2.5 (0-3.0)
[2016-08-22] MEDS ORDERED: PERFLUTREN LIPID MICROSPHERE (DEFINITY) IV ONE (07:19)
[2016-08-22] MEDS: LISINOPRIL 20 MG TAB PO SCH (08:23)
[2016-08-22] MEDS: ASPIRIN 81 MG ECTAB PO SCH (08:24)
--- NOTE | 2016-08-22 09:43 | DIAGNOSTIC IMAGING REPORT ---
ULTRASOUND BILATERAL LOWER EXTREMITY VENOUS CLINICAL HISTORY: Left leg pain. COMPARISON STUDY: No priors. TECHNIQUE: Real-time, grayscale, and color Doppler sonography of the deep veins of the right and left lower extremity was performed from the inguinal crease to the calf. Compression and augmentation were utilized. FINDINGS: Right lower extremity: There is no sonographic evidence of deep venous thrombosis identified in the right lower extremity. The common femoral, superficial femoral, and popliteal veins are patent and normally compressible. The greater saphenous vein and the profunda femoris vein at the junction with the common femoral vein are clear. The visualized calf veins are patent. Left lower extremity: There is nearly occlusive deep venous thrombosis identified in the popliteal vein. This extends in the calf within the posterior tibial vein. The remaining calf vessels are patent. The common femoral and superficial femoral veins are patent and normally compressible. The greater saphenous vein and the profunda femoris vein at the junction with the common femoral vein are clear. IMPRESSION: 1. There is no sonographic evidence of deep venous thrombosis identified in the right lower extremity. 2. There is nearly occlusive deep venous thrombosis identified in the left popliteal vein which extends into the calf. Electronically signed by: Gil Asencio M.D. 08/22/2016 9:42 AM Dictated Date/Time: 08/22/2016 9:36 AM
--- NOTE | 2016-08-22 10:00 | Progress Note ---
Internal Med Progress Note Date of Service: Aug 22, 2016. Provider Documentation: SUBJECTIVE: no complain of dizzy spell or lightheadedness no syncope denies of any SOB , chest pain in room air OBJECTIVE: Vital Signs-as noted below Exam: General-no sign of distress Eyes-sclera non icteric ENT-multiple bruise , dried blood around eyelids, nasal bridge , Lungs-CTA Heart-regular S1/s2 Abdomen-soft, non tender Extremities-no edema, no calf tenderness Neuro-no focal deficit Lab data as noted below. ASSESSMENT & PLAN: Acute Bilateral PE presented with dyspnea on exertion chest CT shows acute bilateral PE started on IV heparin hypercoag w/up ordered echo ordered and pending pulmonary consultation in room air Lower ext Doppler shows: There is nearly occlusive deep venous thrombosis identified in the left popliteal vein which extends into the calf. continued IV heparin / Coumadin will be started once bleeding risk form nasal fx is low Syncope : possible vasovagal ? pt mentions coming out form bathroom after urination felt dizzy and passed out , hitting the floor mentions that the feeling came as a wave, did not had chest pain or sob ECHO ordered if ECHO shows significant rt heart staring due to PE will need to consult vascular surgery for IVC filter placement Fall s/p orbital and nasal fractures no epistaxis noted at present patient was doing well in the ER; then he fell, does not recall why or how developed epistaxis and fracture of nose and R orbit spoke with maxillary facial surgeon; okay with IV heparin, monitor for epistaxis may need ENT consultation if nosebleed develops HTN hold triamterene/HCTZ-will prevent hypotension in setting of syncope , fall continue Lisinopril monitor BP HLD continue Zocor DVT ppx IV heparin FULL CODE DVT PROPHYLAXIS IV heparin DISPOSITION to home when medically stable Vital Signs: Date Time Temp Pulse Resp B/P (MAP) Pulse Ox O2 Delivery O2 Flow Rate FiO2 08/22/16 08:31 36.5 70 20 110/69 (83) 93 Room Air 08/22/16 04:00 Oxymask 4.0 08/22/16 03:38 36.4 63 21 127/88 (101) 99 Oxymask 4.0 08/22/16 01:24 36.6 71 22 124/83 91 Room Air 08/22/16 01:01 70 17 128/71 100 08/22/16 00:15 69 24 136/73 99 Non-Rebreather 15.0 08/21/16 23:25 77 23 118/68 100 Non-Rebreather 15.0 08/21/16 23:21 75 08/21/16 22:26 78 21 111/68 94 Room Air 08/21/16 21:45 65 32 08/21/16 21:40 67 14 08/21/16 21:00 77 14 109/81 92 Room Air 08/21/16 20:00 81 13 118/78 92 Room Air 08/21/16 19:04 79 08/21/16 18:52 Room Air 08/21/16 18:52 80 17 101/63 92 Room Air 08/21/16 16:14 93 Room Air 08/21/16 16:11 36.7 84 20 121/79 92 Room Air Lab Results: Results Past 24 Hours Test 08/21/16 19:00 08/22/16 05:26 08/22/16 09:54 Range/Units White Blood Count 9.27 9.36 4.8-10.8 K/uL Red Blood Count 5.05 4.84 4.7-6.1 M/uL Hemoglobin 14.5 14.0 14.0-18.0 g/dL Hematocrit 43.3 42.2 42-52 % Mean Corpuscular Volume 85.7 87.2 80-100 fL Mean Corpuscular Hemoglobin 28.7 28.9 25-34 pg Mean Corpuscular Hemoglobin Concent 33.5 33.2 32-36 g/dl Platelet Count 207 196 130-400 K/uL Mean Platelet Volume 9.8 10.0 7.4-10.4 fL Neutrophils (%) (Auto) 64.2 % Lymphocytes (%) (Auto) 23.5 % Monocytes (%) (Auto) 8.3 % Eosinophils (%) (Auto) 3.6 % Basophils (%) (Auto) 0.2 % Neutrophils # (Auto) 5.95 1.4-6.5 K/uL Lymphocytes # (Auto) 2.18 1.2-3.4 K/uL Monocytes # (Auto) 0.77 0.11-0.59 K/uL Eosinophils # (Auto) 0.33 0-0.5 K/uL Basophils # (Auto) 0.02 0-0.2 K/uL RDW Standard Deviation 45.4 46.9 36.4-46.3 fL RDW Coefficient of Variation 14.7 14.8 11.5-14.5 % Immature Granulocyte % (Auto) 0.2 % Immature Granulocyte # (Auto) 0.02 0.00-0.02 K/uL Prothrombin Time 10.9 9.0-12.0 SECONDS Prothromb Time International Ratio 1.0 0.9-1.1 Activated Partial Thromboplast Time 26.0 33.9 21.0-31.0 SECONDS Partial Thromboplastin Ratio 1.0 1.3 D-Dimer 8410 0-500 ug/L FEU Sodium Level 138 140 136-145 mmol/L Potassium Level 4.2 4.3 3.5-5.1 mmol/L Chloride Level 104 104 98-107 mmol/L Carbon Dioxide Level 27 30 21-32 mmol/L Anion Gap 7.0 6.0 3-11 mmol/L Blood Urea Nitrogen 15 14 7-18 mg/dl Creatinine 1.20 1.20 0.60-1.40 mg/dl Est Creatinine Clear Calc Drug Dose 112.1 113.1 ml/min Estimated GFR () 79.5 79.5 Estimated GFR (Non- 68.6 68.6 BUN/Creatinine Ratio 12.4 11.9 10-20 Random Glucose 100 119 70-99 mg/dl Calcium Level 9.1 8.7 8.5-10.1 mg/dl Total Bilirubin 0.3 0.2-1 mg/dl Aspartate Amino Transf (AST/SGOT) 27 15-37 U/L Alanine Aminotransferase (ALT/SGPT) 50 12-78 U/L Alkaline Phosphatase 72 45-117 U/L Troponin I 0.074 0.074 0-0.045 ng/ml Pro-B-Type Natriuretic Peptide 3393 0-900 pg/ml Total Protein 7.5 6.4-8.2 gm/dl Albumin 3.0 3.4-5.0 gm/dl Globulin 4.5 2.5-4.0 gm/dl Albumin/Globulin Ratio 0.7 0.9-2 Hepatitis C Antibody Screen NEG NEG Total Creatine Kinase 96 39-308 U/L Creatine Kinase MB 2.4 0.5-3.6 ng/ml Creatine Kinase MB Ratio 2.5 0-3.0
--- NOTE | 2016-08-22 12:06 | ECHOCARDIOGRAM REPORT ---
*NOTICE TO RECEIVING [facility] This information is strictly Confidential and protected under [place] law. [place] law prohibits you from making any further disclosure of this information unless further disclosure is expressly permitted by the written consent of the person to whom it pertains or is authorized by law. A general authorization for the release of medical or other information is not sufficient for this purpose. Hospital accepts no responsibility if the information is made available to any other person, INCLUDING THE PATIENT. Interpretation Summary * Name: CANDE HIGHTOWER Study Date: 08/22/2016 06:38 AM BP: 127/88 mmHg * Patient Location: C.2T\S\S244\S\1 HR: 63 * : 1965 (M/d/yyyy) Gender: Male Height: 72 in * Age: 51 yrs Ethnicity: CA Weight: 357 lb * Ordering Physician: Massiel Deshpande * Referring Physician: Self, Referred * Performed By: Carina Talamantes RDCS * * Reason For Study: bilateral PE's * BSA: 2.7 m2 * The study was technically adequate. * -- Conclusions -- * Sinus rhythm was present during the echocardiogram study. * Findings are consistent with right ventricualar strain pattern. * There are no prior studies available for direct comparison. * There is mild concentric left ventricular hypertrophy. * There is septal flattening consistent with right ventricular pressure / volume overload * The LV wall motion is otherwise normal. * The LV Ejection Fraction = 65-70%. * The right ventricle is moderately dilated. * The right ventricular systolic function is moderately reduced with hypokinesis at the basal and mid leves with sparing of the right ventricular apex. * There is mild tricuspid regurgitation. * Mild pulmonary hypertension is present. The calculated pulmonary arterys systolic pressure is 50 mm Hg. Procedure Details * A complete two-dimensional transthoracic echocardiogram was performed (2D, M-mode, Doppler and color flow Doppler). * A contrast injection of Definity was performed to improve assessment of LV function. * Contrast was injected into an intravenous site in the right arm. * One vial of Definity ultrasound contrast was diluted in normal saline to a total volume of 10 ml. A total of '2' ml of solution was administered during imaging. * Lot # [id number] of Definity utilized for procedure. * Expiration date SEP 29. * The attending nurse who injected the contrast agent was Theresa Oliva RN. Left Ventricle * The left ventricle is normal in size. * There is mild concentric left ventricular hypertrophy. * Left ventricular systolic function is normal. * The LV Ejection Fraction = 65-70%. * There is septal flattening consistent with pressure / volume overload of the right ventricle. * The LV wall motion is otherwise normal. Right Ventricle * The right ventricle is moderately dilated. * The right ventricular systolic function is moderately reduced. Atria * The left atrial size is normal. * Right atrial size is normal. * There is no evidence of atrial septal defect, but resolution does not allow assessment for a patent foramen ovale. Mitral Valve * The mitral valve is normal. * There is no mitral valve stenosis. * Significant mitral regurgitation is absent. Tricuspid Valve * The tricuspid valve is normal. * There is no tricuspid stenosis. * There is mild tricuspid regurgitation. * Mild pulmonary hypertension is present. The calculated pulmonary arterys systolic pressure is 50 mm Hg. Aortic Valve * The aortic valve is trileaflet. * Aortic stenosis is absent. * There is no significant aortic regurgitation. Pulmonic Valve * The pulmonary valve is not well seen, but the Doppler examination is normal without significant regurgitation or stenosis. Great Vessels * The aortic root and proximal ascending aorta are normal sized. Pericardium/Pleural * There is no pericardial effusion. Great Vessels * Normal inferior vena cava diameter and respiratory variation suggests normal central venous pressure. Left Ventricular Diastolic Function * Grade I diastolic dysfunction, (abnormal relaxation pattern). MMode 2D Measurements and Calculations IVSd 1.4 cm LVIDd 4.2 cm LVIDs 2.4 cm LVPWd 1.4 cm IVS/LVPW 1.0 FS 41.1 % EDV(Teich) 76.6 ml ESV(Teich) 21.2 ml EF(Teich) 72.3 % EDV(cubed) 71.7 ml ESV(cubed) 14.7 ml EF(cubed) 79.5 % LV mass(C)d 211.5 grams LV mass(C)dI 77.6 grams/m\S\2 SV(Teich) 55.4 ml SI(Teich) 20.3 ml/m\S\2 SV(cubed) 57.0 ml SI(cubed) 20.9 ml/m\S\2 Ao root diam 4.3 cm Ao root area 14.9 cm\S\2 ACS 2.6 cm LA dimension 3.5 cm asc Aorta Diam 4.0 cm LA/Ao 0.81 LVOT diam 2.0 cm LVOT area 3.2 cm\S\2 LVAd ap4 28.5 cm\S\2 LVLd ap4 9.3 cm EDV(MOD-sp4) 70.0 ml EDV(sp4-el) 74.2 ml LVAs ap4 10.7 cm\S\2 LVLs ap4 6.9 cm ESV(MOD-sp4) 14.1 ml ESV(sp4-el) 13.9 ml EF(MOD-sp4) 79.8 % EF(sp4-el) 81.2 % LVAd ap2 27.4 cm\S\2 LVLd ap2 8.4 cm EDV(MOD-sp2) 71.6 ml EDV(sp2-el) 76.1 ml LVAs ap2 11.7 cm\S\2 LVLs ap2 6.9 cm ESV(MOD-sp2) 16.8 ml ESV(sp2-el) 16.8 ml EF(MOD-sp2) 76.6 % EF(sp2-el) 77.9 % LVLd %diff -10.78 % EDV(MOD-bp) 74.6 ml LVLs %diff -1.06 % ESV(MOD-bp) 15.4 ml EF(MOD-bp) 79.4 % SV(MOD-sp4) 55.9 ml SI(MOD-sp4) 20.5 ml/m\S\2 SV(MOD-sp2) 54.8 ml SI(MOD-sp2) 20.1 ml/m\S\2 SV(MOD-bp) 59.2 ml SI(MOD-bp) 21.7 ml/m\S\2 SV(sp4-el) 60.3 ml SI(sp4-el) 22.1 ml/m\S\2 SV(sp2-el) 59.3 ml SI(sp2-el) 21.8 ml/m\S\2 Doppler Measurements and Calculations MV E max kevin 42.5 cm/sec MV A max kevin 56.2 cm/sec MV E/A 0.76 MV dec time 0.36 sec Ao V2 max 119.0 cm/sec Ao max PG 5.7 mmHg Ao max PG (full) 0.44 mmHg RADHA(V,A) 3.1 cm\S\2 RADHA(V,D) 3.1 cm\S\2 LV V1 max PG 5.2 mmHg LV V1 max 114.3 cm/sec PA V2 max 80.1 cm/sec PA max PG 2.6 mmHg PA acc slope 376.8 cm/sec\S\2 PA acc time 0.12 sec TR max kevin 327.2 cm/sec PA pr(Accel) 25.1 mmHg
--- NOTE | 2016-08-22 12:19 | Progress Note ---
Progress Note Date of Service Aug 22, 2016. Progress Note ECHO SHOWS : * Findings are consistent with right ventricualar strain pattern. * There are not prior studies available for direct comparison. * There is mild concentric left ventricular hypertrophy. * Paradoxical septal motion is consistent with right ventricular volume overload. pt has bilat PE left lower ext occlusive thrombus , ECHO shows rt heart strain , high risk fo fuhrer r embolic phenomenon causing cardiac compromise Vascular surgery consulted for IVC filter placement ordered for NPO
[2016-08-22 12:46] LABS: PARTIAL THROMBOPLASTIN RATIO 1.6
[2016-08-22] MEDS ORDERED: HEPARIN IV BOLUS 4,000 UNIT in SYRINGE 0 ML IV ONE (13:30)
--- NOTE | 2016-08-22 13:50 | Surgery Consultation ---
Consultation Date of Service Aug 22, 2016. (Rosalee Chamberlain PA-C) Chief Complaint DVT/PE/R heart strain (Rosalee Chamberlain PA-C) History of Present Illness The patient is a 51 year old male with hx of hypertension and hypercholesterolemia, admitted d/t PE/DVT and facial fx which occurred after falling while in ED and striking his face. Pt denies previous DVT/PE. 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 Pt had echocardiogram this AM which demonstrates R sided heart strain. Pt admits facial pain, ecchymosis, DUNCAN. Denies JOHNSON, fever, chills, chest pain, abd pain, N /V, rest pain, claudication, other complaints. (Rosalee Chamberlain PA-C) Vitals Vital Signs Past 12 Hours Date Time Temp Pulse Resp B/P (MAP) Pulse Ox O2 Delivery O2 Flow Rate FiO2 08/22/16 11:46 36.3 67 20 122/79 (93) 93 Room Air 08/22/16 08:31 36.5 70 20 110/69 (83) 93 Room Air 08/22/16 08:00 93 Non-Rebreather 3.0 08/22/16 04:00 Oxymask 4.0 08/22/16 03:38 36.4 63 21 127/88 (101) 99 Oxymask 4.0 (Rosalee Chamberlain PA-C) Allergies Coded Allergies: Penicillins (Verified Allergy, Mild, Hives, 08/21/16) Home Medications Scheduled Fenofibrate (Tricor ), 134 MG PO DAILY Lisinopril (Zestril), 20 MG PO DAILY Simvastatin (Zocor), 20 MG PO QPM Triamterene/Hctz (Triamterene/Hydrochloroth), 0.5 TAB PO DAILY Problem List Medical Problems: (1) Hypertension (Rosalee Chamberlain PA-C) Surgical / Medical History Hx Cardiac Surgery: No Hx Abdominal Surgery: No Hx Cancer Surgery: No Hx Thoracic Surgery: No Hx Orthopedic: No Hx Urinary Tract Surgery: No HX Other Surgery: Yes (LT EYE REPAIR, TONSILECTOMY) Past Medical/Surgical History: High Cholesterol, Hypertension (Rosalee Chamberlain PA-C) Family History + HTN (Rosalee Chamberlain PA-C) Social History Smoking Status: Never Smoker Hx Tobacco Use In Past Year?: No Hx Alcohol Use - Type & Amnt: Yes (BEER/WEEKLY) Hx Substance Use -Type & Amnt: No (Rosalee Chamberlain, NAFISA) Review of Systems Constitutional: + malaise, No chills Skin: No change in color Eyes: No visual changes ENMT: No sore throat Respiratory: + DUNCAN, + short of breath, No cough, No hemoptysis Cardiovascular: No chest pain, No palpitations, No syncope, No edema, No intermittent claudication Gastrointestinal: No abdominal pain, No nausea, No vomiting Neurologic: No dizziness, No headache, No lethargy, No numbness, No tingling ( Rosalee Chamberlain, NAFISA) Physical Exam Constitutional: General Apperance: well-nourished, well-developed, obese Level of Distress: NAD, acutely ill Psychiatric: Mental Status: active & alert, normal mood, normal affect Orientation: oriented except where noted, to time, to place, to person Memory: recent memory normal, remote memory normal Head: normocephalic, with evidence of injury (R eye orbit, nose with edema, ecchymosis) Eyes: EOM: EOMI Neck: supple, trachea midline Lungs: Respiratory effort: no dyspnea Auscultation: no wheezing, no rales/crackles, no rhonchi, decreased breath sounds Cardiovascular: Apical Impulse: not displaced Heart Auscultation: RRR, no rubs, no gallops Peripheral Pulses: Pulses: full and equal, in all extremities except if noted Bruits: none appreciated Carotid Pulse: normal on the left, normal on the right Brachial Pulses: normal on the left, normal on the right Radial Pulse: normal on the left, normal on the right Femoral Pulse: normal on the left, normal on the right Posterior Tibialis Pulse: decreased on the left, decreased on the right Dorsalis Pedis Pulse: decreased on the left, decreased on the right Abdomen: Bowel Sounds: normal Inspection & Palpation: soft, non-distended, no tenderness, guarding & rebound Musculoskeletal: normal strength (5/5 throughout), normal tone Extremities: Upper Right: no cyanosis, no edema, no varicosities Upper Left: no cyanosis, no edema, no varicosities Lower Right: no cyanosis, no edema, no varicosities Lower Left: no cyanosis, no edema, no varicosities Neurologic: Cranial Nerves: grossly intact Sensation: grossly intact (Rosalee Chamberlain, PA-C) Assessment and Plan ASSESSMENT and PLAN: DVT/Bilateral PE Right heart strain Pt discussed with Dr Donovan, recommends IVC filter to be inserted this afternoon. Procedure, risks, benefits, and alternatives discussed with pt, he expresses understanding and agreement. Will discuss removal of IVC filter in 3- 6 months in office. (Rosalee Chamberlain, PA-C) Patient was seen, examined, and chart reviewed. Agree with exam and treatment plan of the Vascular PA. Patient for a filter placement today. I have discussed the risks options and benefits of the procedure with the patient. The patient understands the risks options and benefits and agrees to the procedure. (Alfredo Donovan M.D.)
[2016-08-22] MEDS ORDERED: CLINDAMYCIN IV 600 MG in DEXTROSE 5% 50ML 50 ML IV ONE (14:00)
[2016-08-22] MEDS ORDERED: CLINDAMYCIN 600 MG/54 ML D5W IV SCH (14:30)
--- NOTE | 2016-08-22 14:51 | Procedure Note ---
Pre-Mod Sedation Assessment General Date of Moderate Sedation: Aug 22, 2016. Vital Signs: Vital Signs Past 12 Hours Date Time Temp Pulse Resp B/P (MAP) Pulse Ox O2 Delivery O2 Flow Rate FiO2 08/22/16 11:46 36.3 67 20 122/79 (93) 93 Room Air 08/22/16 08:31 36.5 70 20 110/69 (83) 93 Room Air 08/22/16 08:00 93 Non-Rebreather 3.0 08/22/16 04:00 Oxymask 4.0 08/22/16 03:38 36.4 63 21 127/88 (101) 99 Oxymask 4.0 Pre-Sedation Airway Assessment Oral Cavity: WNL Smoking Status: Never Smoker Mallampati Classification: Class I ASA Classification: Class II Notes The planned sedation has been discussed with the patient and consent obtained. I have identified the patient, determined the appropriateness of sedation and have assessed the patient immediately prior to the procedure. All medicine(s) and interventions are by my order.
--- NOTE | 2016-08-22 15:00 | Progress Note ---
Progress Note Date of Service Aug 22, 2016. Progress Note INCIDENTAL FINDING OF LUNG NODULE : . 4 mm solid right lower lobe pulmonary nodule Fleischner criteria recommendations for follow-up of incidental CT nodules SOLID NODULES Solitary nodule size: <6 mm * low risk patients: no follow-up needed * high risk patients: optional CT at 12 months PT WILL NEED REPEAT CTA OF CHEST IN 12 MONTHS FOR FOLLOW UP
[2016-08-22] MEDS ORDERED: MIDAZOLAM HCL 1 MG/ML 2ML VIAL ONE (16:06)
[2016-08-22] MEDS ORDERED: FENTANYL CITRATE INJ 50 MCG/1 ML 2 ML VIAL ONE (16:06)
[2016-08-22] MEDS ORDERED: MIDAZOLAM HCL 1 MG/ML 2ML VIAL IV ONE (16:32)
[2016-08-22] MEDS ORDERED: LIDOCAINE HCL 1% 20 ML VIAL INJ ONE (16:33)
--- NOTE | 2016-08-22 16:33 | Pulmonary Consultation ---
History General Date of Service: Aug 22, 2016. Stated Complaint: Facial Laceration,Nasal Bone Fractures,Pulmonary embolism HPI The patient is a 51 year old male who presents to [facility] with complaints of Facial Laceration,Nasal Bone Fractures, Bilateral pulmonary emboli. The patient's primary care provider is Laura Shelton M.D.. Mr. Fuchs is a 51 year old male with PMH of HTN who presents with several day history of shortness of breath and dyspnea on exertion. He states that he was in his normal state of health up until this weekend when he noticed that he had worsening shortness of breath that progressed to dyspnea at rest. He denies any fever, chills, chest pain, cough, or hemoptypsis. He states that he had unlimited exercise tolerance until a few days ago. Upon arrival to the ER, he was noted to hypoxic on RA that improved with supplemental oxygen of 15L. He was normotensive with stable VS. D-dimer was done and elevated to 8410, with mildly elevated troponin and 0.074 and BNP of 3393. CT chest was done and showed bilateral pulmonary emboli. Of note, patient had episode of syncope and fall and sustained right orbital laceration and nasal fracture. He was started on heparin ggt,were done hypercoagulable work up was done. He denies any history of previous pulmonary emboli or DVTs, recent extended travel, hospitalizations or surgeries. He was admitted to medicine team for further management. TTE today showed that there was significant right heart strain with bowing of the intraventricular septum and occlusive DVT seen in the left lower extremity. Today, he states that he feels much better. Shortness of breath has improved somewhat since being in the hospital. States that he will have IVC filter placed today. Historian: patient Onset: other (3 days) Severity: moderate Complaint Status: persistent, constant Method of Injury: fall Modifying Factors: none Review of Systems Constitutional: reports: no symptoms Eyes: reports: as stated in HPI ENT: reports: no symptoms Cardiovascular: reports: syncope Respiratory: reports: shortness of breath, DUNCAN, denies: cough, orthopnea, wheezing, sputum production, PND, hemoptysis Gastrointestinal: reports: no symptoms Genitourinary - Male: reports: no symptoms Musculoskeletal: reports: no symptoms Integumentary: reports: no symptoms Neurologic: reports: no symptoms Psychiatric: reports: no symptoms Endocrine: no symptoms Hematologic / Lymphatic: no symptoms Allergic / Immunologic: no symptoms All Other Symptoms All Other Systems: Reviewed and Negative Past Medical History Past Medical History: HTN Past Medical History: hypertension Past Surgical History: no surgical history Family History Denies any family history of pulmonary embolism or hypercoagulable states. Social History Hx Tobacco Use In Past Year?: No Smoking Status: Never Smoker Alcohol: occasional Drug Use: none Marital status: Housing status: lives alone Occupational Status: employed Immunizations History of Influenza Vaccine: Unknown History of Tetanus Vaccine?: Unknown History of Pneumococcal: Unknown History of Hepatitis B Vaccine: Unknown Other Immunizations?: Unknown Allergies Coded Allergies: Penicillins (Verified Allergy, Mild, Hives, 08/21/16) Current Medications Reported Home Medications Medications Dose Route/Sig Max Daily Dose Days Date Category Dose Instructions Zocor (Simvastatin) 20 Mg Tab 20 Mg PO QPM 08/21/16 Reported Triamterene/Hydrochloroth (Triamterene/Hctz) 1 Ea Tab 0.5 Tab PO DAILY 08/21/16 Reported TRIAMTERINE/HCTZ 75-50 MG TABLETS, TAKE HALF A TABLET DAILY Zestril (Lisinopril) 20 Mg Tab 20 Mg PO DAILY 08/21/16 Reported Tricor (Fenofibrate) 134 Mg Cap 134 Mg PO DAILY 08/21/16 Reported Physical Physical Exam Vital Signs: Date Time Temp Pulse Resp B/P (MAP) Pulse Ox O2 Delivery O2 Flow Rate FiO2 08/22/16 08:31 36.5 70 20 110/69 (83) 93 Room Air 08/22/16 08:00 93 Non-Rebreather 3.0 08/22/16 04:00 Oxymask 4.0 08/22/16 03:38 36.4 63 21 127/88 (101) 99 Oxymask 4.0 08/22/16 01:24 36.6 71 22 124/83 91 Room Air 08/22/16 01:01 70 17 128/71 100 08/22/16 00:15 69 24 136/73 99 Non-Rebreather 15.0 08/21/16 23:25 77 23 118/68 100 Non-Rebreather 15.0 08/21/16 23:21 75 08/21/16 22:26 78 21 111/68 94 Room Air 08/21/16 21:45 65 32 7/10/17 21:40 67 14 08/21/16 21:00 77 14 109/81 92 Room Air 08/21/16 20:00 81 13 118/78 92 Room Air 08/21/16 19:04 79 08/21/16 18:52 Room Air 08/21/16 18:52 80 17 101/63 92 Room Air 08/21/16 16:14 93 Room Air 08/21/16 16:11 36.7 84 20 121/79 92 Room Air General Appearance: NO APPARENT DISTRESS, obese Head: NORMOCEPHALIC, other (laceration to right eye with right eyes ecchymosis) Eyes: PERRLA, other (See above) ENT: NORMAL EAR EXAM, NORMAL THROAT EXAM, epistaxsis present (dried blood in nares) Neck: NO TENDERNESS (short thick neck), SUPPLE Respiratory: BREATH SOUNDS NORMAL, NO RESPIRATORY DISTRESS, NO TENDERNESS Cardiovasular: REGULAR RATE/RHYTHM, NORMAL S1S2, NO MURMUR, NO GALLOP, NO RUB, NORMAL PERIPHERAL PULSES Abdomen: NON TENDER, NORMAL BOWEL SOUNDS Upper Extremities: NO EDEMA Lower Extremities: NO EDEMA Pulses: dorsalis pedis (R) (2+), dorsalis pedis (L) (2+) Neuro: ALERT, ORIENTED x 3, NORMAL MOTOR EXAM, NORMAL GAIT Psychiatric: NORMAL AFFECT, NO SUICIDAL IDEATION Diagnostics Labs Results Past 24 Hours Test 08/21/16 19:00 08/22/16 05:26 08/22/16 09:54 Range/Units White Blood Count 9.27 9.36 4.8-10.8 K/uL Red Blood Count 5.05 4.84 4.7-6.1 M/uL Hemoglobin 14.5 14.0 14.0-18.0 g/dL Hematocrit 43.3 42.2 42-52 % Mean Corpuscular Volume 85.7 87.2 80-100 fL Mean Corpuscular Hemoglobin 28.7 28.9 25-34 pg Mean Corpuscular Hemoglobin Concent 33.5 33.2 32-36 g/dl Platelet Count 207 196 130-400 K/uL Mean Platelet Volume 9.8 10.0 7.4-10.4 fL Neutrophils (%) (Auto) 64.2 % Lymphocytes (%) (Auto) 23.5 % Monocytes (%) (Auto) 8.3 % Eosinophils (%) (Auto) 3.6 % Basophils (%) (Auto) 0.2 % Neutrophils # (Auto) 5.95 1.4-6.5 K/uL Lymphocytes # (Auto) 2.18 1.2-3.4 K/uL Monocytes # (Auto) 0.77 0.11-0.59 K/uL Eosinophils # (Auto) 0.33 0-0.5 K/uL Basophils # (Auto) 0.02 0-0.2 K/uL RDW Standard Deviation 45.4 46.9 36.4-46.3 fL RDW Coefficient of Variation 14.7 14.8 11.5-14.5 % Immature Granulocyte % (Auto) 0.2 % Immature Granulocyte # (Auto) 0.02 0.00-0.02 K/uL Prothrombin Time 10.9 9.0-12.0 SECONDS Prothromb Time International Ratio 1.0 0.9-1.1 Activated Partial Thromboplast Time 26.0 33.9 21.0-31.0 SECONDS Partial Thromboplastin Ratio 1.0 1.3 D-Dimer 8410 0-500 ug/L FEU Sodium Level 138 140 136-145 mmol/L Potassium Level 4.2 4.3 3.5-5.1 mmol/L Chloride Level 104 104 98-107 mmol/L Carbon Dioxide Level 27 30 21-32 mmol/L Anion Gap 7.0 6.0 3-11 mmol/L Blood Urea Nitrogen 15 14 7-18 mg/dl Creatinine 1.20 1.20 0.60-1.40 mg/dl Est Creatinine Clear Calc Drug Dose 112.1 113.1 ml/min Estimated GFR () 79.5 79.5 Estimated GFR (Non- 68.6 68.6 BUN/Creatinine Ratio 12.4 11.9 10-20 Random Glucose 100 119 70-99 mg/dl Calcium Level 9.1 8.7 8.5-10.1 mg/dl Total Bilirubin 0.3 0.2-1 mg/dl Aspartate Amino Transf (AST/SGOT) 27 15-37 U/L Alanine Aminotransferase (ALT/SGPT) 50 12-78 U/L Alkaline Phosphatase 72 45-117 U/L Troponin I 0.074 0.074 0-0.045 ng/ml Pro-B-Type Natriuretic Peptide 3393 0-900 pg/ml Total Protein 7.5 6.4-8.2 gm/dl Albumin 3.0 3.4-5.0 gm/dl Globulin 4.5 2.5-4.0 gm/dl Albumin/Globulin Ratio 0.7 0.9-2 Hepatitis C Antibody Screen NEG NEG Total Creatine Kinase 96 39-308 U/L Creatine Kinase MB 2.4 0.5-3.6 ng/ml Creatine Kinase MB Ratio 2.5 0-3.0 Diagnostic Radiology TTE: 08/22/2016 Sinus rhythm was present during the echocardiogram study. * Findings are consistent with right ventricualar strain pattern. * There are not prior studies available for direct comparison. * There is mild concentric left ventricular hypertrophy. * Paradoxical septal motion is consistent with right ventricular volume overload. * The LV wall motion is otherwise normal. * The LV Ejection Fraction = 65-70%. * The right ventricle is moderately dilated. * The right ventricular systolic function is moderately reduced with hypokinesis at the basal and mid leves with sparing of the right ventricular apex. * There is mild tricuspid regurgitation. * Mild pulmonary hypertension is present. The calculated pulmonary artery systolic pressure is 50 mm Hg. Bilateral LE U/S: 08/22/2016 1. There is no sonographic evidence of deep venous thrombosis identified in the right lower extremity. 2. There is nearly occlusive deep venous thrombosis identified in the left popliteal vein which extends into the calf. CXR: 08/21/2016 There is mild prominence of the proximal right pulmonary artery. This could indicate pulmonary arterial hypertension. There is no focal pulmonary consolidation. There are no pleural effusions. There is no pneumothorax. CTA 08/21/2016 No pathologically enlarged axillary mediastinal or hilar lymph nodes were visualized. There was no evidence of thoracic aortic dilatation. There are large bilateral pulmonary artery filling defects involving both upper lobes right middle lobe and both lower lobes. No pleural effusions are visualized. There was no evidence of focal pulmonary consolidation. EKG EK08/21/2016 Normal sinus rhythm at 78 bpm Possible Inferior infarct , age undetermined T wave abnormality, consider anterior ischemia Abnormal ECG No previous ECGs Impression Assessment and Plan Submassive pulmonary emboli Syncope Pulmonary HTN Subcentimeter pulmonary nodule Patient likely has unprovoked submassive pulmonary embolism which precipitated worsening dyspnea and hypoxia. An episode of syncope associated with elevated troponins, BNP, and TTE that shows right heart strain is prognostic of worsened outcomes. Mild pulmonary HTN in the setting of an acute pulmonary embolism can be expected and should improve with resolution of clot burden. TPA in this setting has been controversial. He has remained hemodynamically stable thus far and sustained facial trauma s/p fall. So I would not recommend at this time. Patient is scheduled for IVC filter which I do not disagree with as another insult could be catastrophic. He is currently on heparin ggt for anticoagulation, however he will likely require at least 6 months of anticoagulation at this time. We discussed the risks and benefits of starting coumadin vs the NOACs. He states that he would prefer to start coumadin as it can be monitored with INR and has reversal agent. He will need to have colonoscopy and age based malignancy screening at some point either during hospitalization or as an outpatient. Follow up hypercoagulable work up as this will determine if patient is a candidate for lifelong anticoagulation or not. Continue with supplemental oxygen therapy as needed prn to maintain SaO2 > 92%. In terms of the subcentimeter solid pulmonary nodule. 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 Nonetheless, he is low risk for malignancy and no further imaging is required. Continue current management per primary team. I appreciate the consult.
[2016-08-22] MEDS ORDERED: IODIXANOL (VISIPAQUE) 270 MG/ML 150ML FLUSH ONE (16:40)
--- NOTE | 2016-08-22 16:41 | Procedure Note ---
Post-Moderate Sedation Plan General Date of Moderate Sedation Aug 22, 2016. Vital Signs: Vital Signs Past 12 Hours Date Time Temp Pulse Resp B/P (MAP) Pulse Ox O2 Delivery O2 Flow Rate FiO2 08/22/16 15:40 36.5 73 16 101/65 (77) 90 Room Air 08/22/16 12:00 93 Room Air 08/22/16 11:46 36.3 67 20 122/79 (93) 93 Room Air 08/22/16 08:31 36.5 70 20 110/69 (83) 93 Room Air 08/22/16 08:00 93 Non-Rebreather 3.0 Review - Discharge Plan Post Moderate Sedation Plan: On clinical assessment, the patient appears to have tolerated the conscious sedation without complications. Patient is recovering as anticipated. Patient will continue to be monitored by nursing and may be discharged when conscious sedation discharge criteria are met.
--- NOTE | 2016-08-22 16:45 | [facility] Operative Report ---
Operative Report Operative Date Aug 22, 2016. Pre-Operative Diagnosis DVT,PE, right heart strain Post-Operative Diagnosis Same Procedure(s) Performed Insertion of inferior vena cava filter, jugular approach conscious sedation ([id number]) Surgeon Venus Radio Adjuster Surgeon(s) none Estimated Blood Loss 3cc Findings filter upright in infra renal vena cava Specimens none Anesthesia Local with conscious sedation Complication(s) None Disposition Recovery Room / PACU Indications This is a 51-year-old white male with deep venous thrombosis and pulmonary emboli. He has demonstrated significant right heart strain on echocardiogram. Due to significant the right heart strain we recommended a removable inferior vena cava filter insertion. He understood the risks options and benefits and agrees to go ahead with the procedure. Description of Procedure The patient was brought to the angio suite and placed in the supine position. The right side of the neck was prepped and draped in the usual fashion. The right internal jugular vein was located with ultrasound. It was patent, compressed easily, and had no filling defects. The vein was then punctured under ultrasound visualization. A guidewire was then passed centrally into the inferior vena cava under fluoroscopic guidance. The puncture site was then dilated and the filter sheath inserted. It was passed to the infra renal vena cava. A venacavagram was done which showed no cava clot and an acceptable size. The renal veins were identified. The filter was then passed through the sheath and deployed in the infra renal vena cava in an upright position. Satisfied with the positioning of the filter, the sheath was removed. Pressure was applied to the puncture site. Adequate hemostatsis was obtained and a sterile dressing was applied. The patient left the angio suite in good condition and tolerated the procedure well. I attest to the content of the Intraoperative Record and any orders documented therein. Any exceptions are noted below.
[2016-08-22 19:25] LABS: PARTIAL THROMBOPLASTIN RATIO 1.6
[2016-08-22] MEDS ORDERED: SODIUM CHLORIDE 0.65% NA SOLN 45 ML (OCEAN) PRN (19:45)
--- NOTE | 2016-08-22 19:46 | Medical Consult ---
Consultation Note Date of Service Aug 22, 2016. Consultation Note 51 year old s/p fall in ER with facial trauma Please refer to the ER notes and admission H and P for the preceeding details. He has suffered a comminuted nasal fracture and a non-displaced right orbital floor fracture. Extra-ocular movements are intact, vision gross unchanged. There is bilateral periorbital eccymosis. He is developing purulent right ocular drainage. There is crusted blood about the face, and nasal swelling. There is no active bleeding, no septal hematoma. Impression - facial fractures as detailed in the facial CT scan. No surgery indicated at this time. Cipro eye drops BID Saline nasal spray Nursing for facial wound care Follow up with me as an outpatient in 10-14 days.
[2016-08-22 19:59] LABS: CKMB/CK RATIO 2.1 (0-3.0)
[2016-08-22] MEDS ORDERED: HEPARIN IV BOLUS 9,000 UNIT in SYRINGE 0 ML IV SCH (20:00)
[2016-08-22] MEDS: SIMVASTATIN 20 MG TAB PO SCH (20:14)
[2016-08-22] MEDS: CIPROFLOXACIN HCL 0.3% OP SOLN 2.5 ML BTL OPR SCH (20:14)
[2016-08-23] VITALS (7 sets, daily range): BP systolic 114–144; BP diastolic 72–83; PULSE 59–73; TEMP 36.3–37; O2SAT 92–100
[2016-08-23 02:47] LABS: PARTIAL THROMBOPLASTIN RATIO 3.5
[2016-08-23] MEDS: HEPARIN 25,000 UNIT/500ML D5W 500 ML IV PRN (06:22)
[2016-08-23] MEDS: LISINOPRIL 20 MG TAB PO SCH (08:05)
[2016-08-23] MEDS: ASPIRIN 81 MG ECTAB PO SCH (08:05)
[2016-08-23] MEDS: CIPROFLOXACIN HCL 0.3% OP SOLN 2.5 ML BTL OPR SCH ×2 (08:05→21:08)
[2016-08-23 10:11] LABS: PARTIAL THROMBOPLASTIN RATIO 2.5
--- NOTE | 2016-08-23 13:28 | Pulmonology Progress Note ---
Pulmonary Progress Note Date of Service Aug 23, 2016. Attending Dr. Florez Subjective Patient currently sleeping. Awakened easily. States that he is feeling better. He denies any chest pain, shortness of breath, cough or hemoptysis. Objective O/E: VS: reviewed, P 59-69, RR 22, Enriqueta@ 97-99% on 4L oxymask. Observed patient while sleeping had episode of desaturation to 86%. Easily awakens to verbal stimuli. HEENT: right eye laceration with ecchymosis Neck: short thick neck, supple, dressing over right IJ. CVS: S1, S2, RRR Lungs: CTA b/l Abdomen: Obese/NT/ND/BS+ Ext: no edema, no cyanosis, no clubbing Labs and imaging reviewed. Assessment & Plan 51 year old morbidly obese male admitted for shortness of breath. Found to have unprovoked PE, started on heparin ggt and s/p IVC filter. Observed having episode of sleep apnea with episode of hypoxia at bedside that resolved with awakening. 1. VTE: submassive pulmonary embolism/DVT -continue with anticoagulation -will need treatment for at least 6 months with coumadin or NOAC as this was unprovoked PE -follow up hypercoagulable work and age related cancer screening -c/w O2 as needed, taper as tolerated 2. MARY -patient should have MARY with PSG ruled out as an outpatient. 3.Incidental pulmonary nodule -patient is low risk patient with subcentimeter solid nodule -no need for follow CT at this time. Appreciate the consult. Will sign off case for now. Please reconsult if you have any further questions. Data Medications: Current Inpatient Medications Medications (Trade) Dose Ordered Sig/Narcisa Route Start Time Stop Time Status Last Admin Dose Admin Ioversol (Optiray 320) 111 ml UD PRN IV 08/21/16 21:00 08/25/16 20:59 Acetaminophen (Tylenol Tab) 650 mg Q4H PRN PO 08/22/16 00:45 09/21/16 00:44 08/22/16 05:46 650 MG Al Hydrox/Mg Hydrox/Simethicone (Maalox Max Susp) 15 ml Q4H PRN PO 08/22/16 00:45 09/21/16 00:44 Magnesium Hydroxide (Milk Of Magnesia Susp) 30 ml Q12H PRN PO 08/22/16 00:45 09/21/16 00:44 Ondansetron HCl (Zofran Inj) 4 mg Q6H PRN IV 08/22/16 00:45 09/21/16 00:44 Aspirin (Ecotrin Tab) 81 mg QAM PO 08/22/16 09:00 09/21/16 08:59 08/23/16 08:05 81 MG Polyethylene (Miralax Powder Packet) 17 gm DAILY PRN PO 08/22/16 00:45 09/21/16 00:44 Lisinopril (Zestril Tab) 20 mg DAILY PO 08/22/16 09:00 09/21/16 08:59 08/23/16 08:05 20 MG Simvastatin (Zocor Tab) 20 mg QPM PO 08/22/16 21:00 09/21/16 20:59 08/22/16 20:14 20 MG Heparin Sodium/ Dextrose 500 ml @ 58 mls/hr Q8H38M PRN IV 08/22/16 01:15 09/21/16 01:14 08/23/16 06:22 58 MLS/HR Sodium Chloride ([place] Nasal [place]) 2 sprays 6XDQ3H PRN NA 08/22/16 19:45 09/21/16 19:44 Ciprofloxacin HCl (Ciprofloxacin 0.3% Op Soln) 2 drops BID OPR 08/22/16 20:30 09/01/16 20:29 08/23/16 08:05 2 DROPS Vital Signs: Date Time Temp Pulse Resp B/P (MAP) Pulse Ox O2 Delivery O2 Flow Rate FiO2 08/23/16 11:33 36.3 59 22 128/79 (95) 99 Oxymask 3.0 08/23/16 08:00 Oxymask 4.0 08/23/16 07:34 36.4 69 22 144/82 (102) 97 Oxymask 3.0 Nasal Cannula 08/23/16 04:00 37.0 63 119/74 (89) 97 Mask 4.0 08/23/16 04:00 97 Mask 4.0 08/23/16 00:00 36.6 67 116/75 (89) 99 Mask 4.0 08/23/16 00:00 99 Mask 4.0 08/22/16 20:00 93 Room Air 08/22/16 19:53 36.5 73 16 124/82 (96) 95 Mask 08/22/16 19:00 36.5 81 20 102/64 (77) 92 Room Air 08/22/16 18:30 36.5 82 20 97/51 (66) 92 Room Air 08/22/16 18:00 36.5 77 20 95/66 (76) 92 Room Air 08/22/16 17:35 36.4 67 18 121/79 (93) 92 Room Air 08/22/16 17:10 36.5 75 18 108/72 (84) 94 Room Air 08/22/16 17:00 93 Room Air 08/22/16 16:41 97 20 140/76 91 Room Air Nasal Cannula 08/22/16 15:40 36.5 73 16 101/65 (77) 90 Room Air Laboratory Results: Last 24 Hours Test 08/22/16 18:59 08/23/16 01:52 08/23/16 09:23 Activated Partial Thromboplast Time 40.6 SECONDS 89.8 SECONDS 64.1 SECONDS Partial Thromboplastin Ratio 1.6 3.5 2.5 Total Creatine Kinase 86 U/L Creatine Kinase MB 1.8 ng/ml Creatine Kinase MB Ratio 2.1 Troponin I 0.040 ng/ml
[2016-08-23] MEDS: STANDARD WARFARIN NOMOGRAM PO SCH (14:00)
[2016-08-23] MEDS ORDERED: WARFARIN SOD 5 MG TAB PO SCH (16:00)
[2016-08-23] MEDS ORDERED: WARFARIN SOD 10 MG TAB PO SCH (16:00)
--- NOTE | 2016-08-23 18:27 | Progress Note ---
Internal Med Progress Note Date of Service: Aug 23, 2016. Provider Documentation: SUBJECTIVE: no complain of chest pain or SOB denies of any dizzy spell no epistaxis or bleeding from facial wounds noted OBJECTIVE: Vital Signs-as noted below Exam: General-no sign of distress Eyes-sclera non icteric ENT-multiple bruise , dried blood around eyelids, nasal bridge , Lungs-CTA Heart-regular S1/s2 Abdomen-soft, non tender Extremities-no edema, no calf tenderness Neuro-no focal deficit Lab data as noted below. ASSESSMENT & PLAN: Acute Bilateral PE presented with dyspnea on exertion chest CT shows acute bilateral PE started on IV heparin hypercoag w/up ordered Lower ext Doppler shows: There is nearly occlusive deep venous thrombosis identified in the left popliteal vein which extends into the calf. ECHO shows significant rt heart strain Vascular surgery consulted s/p IVC filter placement cont IV heparin /started on room air Syncope : possible due to massive to submassive PE felt dizzy and passed out , hitting the floor mentions that the feeling came as a wave, did not had chest pain or sob ECHO shows significant rt heart strain due to PE consulted vascular surgery s/p IVC filter placement cont to IV heparin /Coumadin monitor in tele Fall s/p orbital and nasal fractures no epistaxis noted at present patient was doing well in the ER; then he fell, does not recall why or how developed epistaxis and fracture of nose and R orbit appreciate input form maxillary facial surgeon; out pt follow up in 2 weeks Cipro eye drop ordered for purulent drainage in eye HTN hold triamterene/HCTZ-will prevent hypotension in setting of syncope , fall continue Lisinopril monitor BP HLD continue Zocor DVT ppx IV heparin FULL CODE DVT PROPHYLAXIS IV heparin /Coumadin DISPOSITION to home when medically stable Vital Signs: Date Time Temp Pulse Resp B/P (MAP) Pulse Ox O2 Delivery O2 Flow Rate FiO2 08/24/16 08:00 Room Air 08/24/16 07:53 36.5 60 18 108/74 (85) 91 Room Air 08/24/16 04:00 92 Oxymask 2.0 08/24/16 03:23 36.8 58 22 130/80 (97) 98 Oxymask 2.0 08/24/16 00:00 Oxymask 2.0 08/23/16 23:28 36.6 61 21 114/72 (86) 100 Oxymask 3.0 08/23/16 20:00 Room Air Oxymask 08/23/16 19:21 36.7 73 18 122/83 (96) 92 Room Air 08/23/16 16:00 Oxymask 4.0 08/23/16 15:05 36.7 65 18 116/74 (88) 92 Room Air 08/23/16 12:00 Oxymask 4.0 08/23/16 11:33 36.3 59 22 128/79 (95) 99 Oxymask 3.0 Lab Results: Results Past 24 Hours Test 08/23/16 09:23 08/24/16 07:16 Range/Units Activated Partial Thromboplast Time 64.1 57.4 21.0-31.0 SECONDS Partial Thromboplastin Ratio 2.5 2.2 White Blood Count 7.55 4.8-10.8 K/uL Red Blood Count 4.39 4.7-6.1 M/uL Hemoglobin 12.9 14.0-18.0 g/dL Hematocrit 38.5 42-52 % Mean Corpuscular Volume 87.7 80-100 fL Mean Corpuscular Hemoglobin 29.4 25-34 pg Mean Corpuscular Hemoglobin Concent 33.5 32-36 g/dl RDW Standard Deviation 47.6 36.4-46.3 fL RDW Coefficient of Variation 14.8 11.5-14.5 % Platelet Count 194 130-400 K/uL Mean Platelet Volume 10.6 7.4-10.4 fL Prothrombin Time 11.4 9.0-12.0 SECONDS Prothromb Time International Ratio 1.1 0.9-1.1
[2016-08-23] MEDS: SIMVASTATIN 20 MG TAB PO SCH (21:07)
[2016-08-24] MEDS: HEPARIN 25,000 UNIT/500ML D5W 500 ML IV PRN (00:44)
[2016-08-24 03:23] VITALS: BP 130/80; PULSE 58; TEMP 36.8; O2SAT 98
[2016-08-24 04:00] VITALS: O2SAT 92
[2016-08-24] MEDS: LISINOPRIL 20 MG TAB PO SCH (07:44)
[2016-08-24] MEDS: ASPIRIN 81 MG ECTAB PO SCH (07:44)
[2016-08-24] MEDS: CIPROFLOXACIN HCL 0.3% OP SOLN 2.5 ML BTL OPR SCH ×2 (07:45→21:47)
[2016-08-24 07:53] VITALS: BP 108/74; PULSE 60; TEMP 36.5; O2SAT 91
[2016-08-24 07:53] LABS: INR 1.1 (0.9-1.1); PARTIAL THROMBOPLASTIN RATIO 2.2; PROTHROMBIN TIME (PATIENT) 11.4 SECONDS (9.0-12.0)
[2016-08-24 08:39] LABS: HEMATOCRIT 38.5 % (42-52); MEAN CELL VOLUME 87.7 fL (80-100); MEAN CORPUSCULAR HEMOGLOBIN 29.4 pg (25-34); MEAN CORPUSCULAR HGB CONC 33.5 g/dl (32-36); MEAN PLATELET VOLUME 10.6 fL (7.4-10.4); PLATELET COUNT 194 K/uL (130-400); RED BLOOD COUNT 4.39 M/uL (4.7-6.1); WHITE BLOOD COUNT 7.55 K/uL (4.8-10.8)
--- NOTE | 2016-08-24 09:04 | Progress Note ---
Internal Med Progress Note Date of Service: Aug 24, 2016. Provider Documentation: SUBJECTIVE: had uneventful night no complain of hypoxia in RA , no dizzy spell no chest pain or DUNCAN no bleeding episode from nose OBJECTIVE: Vital Signs-as noted below Exam: General-no sign of distress Eyes-sclera non icteric , ecchymosis around orbits ENT-multiple bruise on face , , dried blood around eyelids, nasal bridge , Lungs-CTA Heart-regular S1/s2 Abdomen-soft, non tender Extremities-no edema, no calf tenderness Neuro-no focal deficit Lab data as noted below. ASSESSMENT & PLAN: Acute Bilateral PE/MASSIVE /SUB MASSIVE WITH RT HEART STRAIN presented with dyspnea on exertion chest CT shows acute bilateral PE had syncope episode in ER /ECHO shows significant rt heart strain pulm consulted , not a candidate to tPA for recent fall and facial injury /Fx pt started on IV heparin hypercoag w/up ordered -for unprovoked PE /DVT ( active at baseline , no recent travel hx , no FH of blood clots ) will need terminal supervisor anticoagulation Lower ext Doppler shows: There is nearly occlusive deep venous thrombosis identified in the left popliteal vein which extends into the calf. Vascular surgery consulted s/p IVC filter placement was on IV heparin / Coumadin ordered to DC IV Heparin Lovenox Sub q therapeutic dose bridge with Coumadin Goal INR 2-3 will need overlapping Lovenox as INR been therapeutic for 2 days appreciate input form Pulmonology Syncope : possible due to massive to submassive PE felt dizzy and passed out , hitting the floor mentions that the feeling came as a wave, did not had chest pain or sob ECHO shows significant rt heart strain due to PE consulted vascular surgery s/p IVC filter placement cont full anticoagulation with Lovenox /Coumadin monitor in tele Fall s/p orbital and nasal fractures no epistaxis noted at present patient was doing well in the ER; then he fell, does not recall why or how developed epistaxis and fracture of nose and R orbit appreciate input form maxillary facial surgeon; out pt follow up in 2 weeks Cipro eye drop ordered for purulent drainage in eye INCIDENTAL NOTE OF LUNG NODULE : sub centimeter 4 mm low risk pt -no further surveillance needed as per Pulmonology POSSIBLE MARY : out pt sleep study HTN hold triamterene/HCTZ-will prevent hypotension in setting of syncope , fall continue Lisinopril monitor BP HLD continue Zocor FULL CODE DVT PROPHYLAXIS Lovenox /Coumadin DISPOSITION to home when medically stable will need anticoagulation clinic follow up Maxillofacial surgery follow up in 2 weeks Medicine follow up with Dr Shelton Vital Signs: Date Time Temp Pulse Resp B/P (MAP) Pulse Ox O2 Delivery O2 Flow Rate FiO2 08/24/16 08:00 Room Air 08/24/16 07:53 36.5 60 18 108/74 (85) 91 Room Air 08/24/16 04:00 92 Oxymask 2.0 08/24/16 03:23 36.8 58 22 130/80 (97) 98 Oxymask 2.0 08/24/16 00:00 Oxymask 2.0 08/23/16 23:28 36.6 61 21 114/72 (86) 100 Oxymask 3.0 08/23/16 20:00 Room Air Oxymask 08/23/16 19:21 36.7 73 18 122/83 (96) 92 Room Air 08/23/16 16:00 Oxymask 4.0 08/23/16 15:05 36.7 65 18 116/74 (88) 92 Room Air 08/23/16 12:00 Oxymask 4.0 08/23/16 11:33 36.3 59 22 128/79 (95) 99 Oxymask 3.0 Lab Results: Results Past 24 Hours Test 08/23/16 09:23 08/24/16 07:16 Range/Units Activated Partial Thromboplast Time 64.1 57.4 21.0-31.0 SECONDS Partial Thromboplastin Ratio 2.5 2.2 White Blood Count 7.55 4.8-10.8 K/uL Red Blood Count 4.39 4.7-6.1 M/uL Hemoglobin 12.9 14.0-18.0 g/dL Hematocrit 38.5 42-52 % Mean Corpuscular Volume 87.7 80-100 fL Mean Corpuscular Hemoglobin 29.4 25-34 pg Mean Corpuscular Hemoglobin Concent 33.5 32-36 g/dl RDW Standard Deviation 47.6 36.4-46.3 fL RDW Coefficient of Variation 14.8 11.5-14.5 % Platelet Count 194 130-400 K/uL Mean Platelet Volume 10.6 7.4-10.4 fL Prothrombin Time 11.4 9.0-12.0 SECONDS Prothromb Time International Ratio 1.1 0.9-1.1
--- NOTE | 2016-08-24 09:11 | Progress Note ---
Progress Note Date of Service Aug 24, 2016. Progress Note ADDENDUM ; pt will need overlap tx with Lovenox bridge and Coumadin total Five or more days ( since starting parenteral bridge ) , to achieve an INR greater than or equal to 2 prior to discontinuation of parenteral therapy Increased risk of further clot formation -with single therapy of Coumadin alone vs overlap bridge tx Pt been in IV heparin since 08/21/16 Day # 4 of Parenteral tx INR 1.1 transitioned to Lovenox Sub q today 08/24/16
--- NOTE | 2016-08-24 09:14 | Discharge Instructions ---
Discharge Instructions Date of Service Aug 24, 2016. Admission Reason for Admission: Facial Laceration,Nasal Bone Fractures,Pe Discharge Discharge Diagnosis / Problem: (1) DVT (deep venous thrombosis) (2) Pulmonary embolism VTE Date & Time Date of VTE Diagnosis: Aug 21, 2016 Time of VTE Diagnosis: 20:55 Discharge Goals Goal(s): Decrease discomfort, Diagnostic testing, Therapeutic intervention Activity Recommendations Activity Limitations: resume your previous activity . Instructions / Follow-Up Instructions / Follow-Up HOSPITAL FOLLOW UP : 08/30/2016 1:[address] Laura Shelton MD Internal Medicine [facility] PLEASE FOLLOW UP WITH ANTICOAGULATION CLINIC FOR MONITORING OF PT/INR OUT PT COLONOSCOPY NEEDS TO BE SCHEDULED BY FAMILY PHYSICIAN MAXILLOFACIAL SURGERY DR RIZO FOLLOWUP IN 2 WEEKS PLEASE SCHEDULE SLEEP STUDY OUT PATIENT FOR OBSTRUCTIVE SLEEP APNEA NEED VASCULAR SURGERY FOLLOW UP WITH DR QUEEN IN 3-6 MONTHS TO REMOVE IVC FILTER PLEASE CALL OFFICE FOR APPOINTMENT Medication Instructions: * Warfarin is a medicine prescribed to prevent blood clots * Warfarin will thin your blood and help prevent new clots * Take your medications exactly as directed * Never skip a dose. Never take a double dose. If you miss a dose, take it as soon as you remember * It is important for your doctor to monitor your prothrombin time (PT). This is a lab test * Keep your appointment for lab tests Risk of Adverse Drug Reactions and Interactions: * Warfarin increases your risk of bleeding * The food you eat and other medications you take can affect how Warfarin works in your body * Ask your doctor about daily aspirin therapy * It is very important to talk with your doctor about all of the other medicines , antibiotics, vitamins or herbal products that you are taking * All of your medication must be approved by your doctor, including new medicines, as well as medicines you have taken before you started taking Warfarin Diet: * In order for Warfarin to work properly, it is important to keep your intake of Vitamin K as consistent as possible * You should avoid any sudden change in Vitamin K intake * Report any significant changes in your diet or weight to your doctor Call your Primary Care doctor if you experience any of the following: * Swelling or Pain in your leg * Sudden, continuous pain deep in a muscle * Pain that worsens when you are active or when you stand still for a long time * Chest Pain * Sudden Shortness of Breath * Rapid or pounding heart beat * Fainting * Dizziness * Cough with blood or bloody sputum * Sweating more than normal * Bruises * Heavy or uncontrolled bleeding * Blood in your urine, stool or vomit * Black or tarry stools Caring for Your Self at Home: * Avoid sitting, standing or lying down for long periods without moving your legs and feet * When traveling by car, stop to get out and move around at least once every 3 hours * On long airplane, train or bus rides, get up and move around when possible * If you can't get up, wiggle your toes and tighten your calves to keep your blood moving Follow Up: It is important for you to keep your follow up appointments with your medical provider. Current Hospital Diet Patient's current hospital diet: AHA Diet (Heart Healthy) Discharge Diet Recommended Diet: AHA Diet (Heart Healthy) Procedures Procedures Performed: Insertion of inferior vena cava filter, jugular approach conscious sedation ([id number]) Pending Studies Studies pending at discharge: yes List of pending studies: PT/INR ON 08/28/[address] SHELTON OFFICE FOR HYPERCOAGULABLE LAB WORK -REPORTS Medical Emergencies . Who to Call and When: Medical Emergencies: If at any time you feel your situation is an emergency, please call 911 immediately. . Non-Emergent Contact Non-Emergency issues call your: Primary Care Provider . . "Provider Documentation" section prepared by Jossie Monk. . VTE Core Measure Inpt VTE Proph given/why not?: Enoxaparin (Lovenox)SQ, Other Anticoagulation Reason no anticoag overlap I/P: Treatment provided - N/A Reason no anticoag overlap @DC: Treatment provided - N/A
[2016-08-24] MEDS ORDERED: LVNIS80 SQ (09:16)
[2016-08-24] MEDS ORDERED: CLXOPS3 OPR (09:16)
[2016-08-24] MEDS ORDERED: CMD75 PO (09:16)
[2016-08-24] MEDS: LOVENOX TEACHING KIT SCH (10:15)
[2016-08-24] MEDS: ENOXAPARIN 80 MG/0.8 ML SYR SQ SCH ×2 (10:17→21:46)
[2016-08-24 11:47] VITALS: BP 122/82; PULSE 68; TEMP 36.9; O2SAT 96
[2016-08-24] MEDS: STANDARD WARFARIN NOMOGRAM PO SCH (14:00)
[2016-08-24 15:56] VITALS: BP 118/78; PULSE 60; TEMP 37.2; O2SAT 94
[2016-08-24] MEDS ORDERED: WARFARIN SOD 10 MG TAB PO ONE (16:00)
[2016-08-24 19:14] VITALS: BP 103/63; PULSE 67; TEMP 36.7; O2SAT 94
[2016-08-24] MEDS: SIMVASTATIN 20 MG TAB PO SCH (21:46)
[2016-08-25] VITALS (7 sets, daily range): BP systolic 102–139; BP diastolic 63–89; PULSE 53–62; TEMP 36.4–36.9; O2SAT 92–100
[2016-08-25 06:58] LABS: INR 1.1 (0.9-1.1); PROTHROMBIN TIME (PATIENT) 12.1 SECONDS (9.0-12.0)
[2016-08-25] MEDS: CIPROFLOXACIN HCL 0.3% OP SOLN 2.5 ML BTL OPR SCH ×2 (08:19→22:35)
[2016-08-25] MEDS: ASPIRIN 81 MG ECTAB PO SCH (08:20)
[2016-08-25] MEDS: LISINOPRIL 20 MG TAB PO SCH (08:20)
--- NOTE | 2016-08-25 09:07 | Progress Note ---
Subjective Date of Service: Aug 25, 2016. Subjective Pt evaluation today including: conversation w/ patient, physical exam, lab review, review of studies, review of inpatient medication list Saw/examined the patient in room 244 Doing well today; no shortness of breath/chest pain No issues to note; no supplemental oxygen needed Problem List Medical Problems: (1) Abnormal EKG Status: Acute (2) Elevated troponin Status: Acute (3) Facial laceration Status: Acute (4) Nasal bone fractures Status: Acute (5) Orbital floor fracture Status: Acute (6) Pulmonary embolism Status: Acute (7) SOB (shortness of breath) Status: Acute (8) Syncope Status: Acute Review of Systems Constitutional: No fever, No chills Respiratory: No cough, No sputum, No wheezing, No shortness of breath, No dyspnea on exertion, No dyspnea at rest, No hemoptysis Cardiac: No chest pain, No edema, No palpitations Abdomen: No pain, No nausea, No vomiting, No diarrhea, No constipation, No GI bleeding Male : No dysuria, No urinary frequency Psychiatric: No depression symptoms Heme: No abnormal bleeding/bruising Medications Current Inpatient Medications Medications (Trade) Dose Ordered Sig/Narcisa Route Start Time Stop Time Status Last Admin Dose Admin Ioversol (Optiray 320) 111 ml UD PRN IV 08/21/16 21:00 08/25/16 20:59 Acetaminophen (Tylenol Tab) 650 mg Q4H PRN PO 08/22/16 00:45 09/21/16 00:44 08/22/16 05:46 650 MG Al Hydrox/Mg Hydrox/Simethicone (Maalox Max Susp) 15 ml Q4H PRN PO 08/22/16 00:45 09/21/16 00:44 Magnesium Hydroxide (Milk Of Magnesia Susp) 30 ml Q12H PRN PO 08/22/16 00:45 09/21/16 00:44 Ondansetron HCl (Zofran Inj) 4 mg Q6H PRN IV 08/22/16 00:45 09/21/16 00:44 Aspirin (Ecotrin Tab) 81 mg QAM PO 08/22/16 09:00 09/21/16 08:59 08/25/16 08:20 81 MG Polyethylene (Miralax Powder Packet) 17 gm DAILY PRN PO 08/22/16 00:45 09/21/16 00:44 Lisinopril (Zestril Tab) 20 mg DAILY PO 08/22/16 09:00 09/21/16 08:59 08/25/16 08:20 20 MG Simvastatin (Zocor Tab) 20 mg QPM PO 08/22/16 21:00 09/21/16 20:59 08/24/16 21:46 20 MG Sodium Chloride ([place] Nasal [place]) 2 sprays 6XDQ3H PRN NA 08/22/16 19:45 09/21/16 19:44 Ciprofloxacin HCl (Ciprofloxacin 0.3% Op Soln) 2 drops BID OPR 08/22/16 20:30 09/01/16 20:29 08/25/16 08:19 2 DROPS Miscellaneous Information (Standard Warfarin Nomogram) 1 ea DAILY@14 PO 08/23/16 14:00 09/22/16 13:59 08/24/16 14:00 1 EA Enoxaparin Sodium (Lovenox Inj) 160 mg Q12H SQ 08/24/16 10:00 09/23/16 09:59 08/24/16 21:46 160 MG Miscellaneous (Lovenox Teaching Kit) 1 ea TODAY@1000 N/A 08/24/16 10:00 09/23/16 09:59 08/24/16 10:15 1 EA Objective Vital Signs Date Time Temp Pulse Resp B/P (MAP) Pulse Ox O2 Delivery O2 Flow Rate FiO2 08/25/16 07:30 36.6 59 20 131/89 (103) 92 08/25/16 04:00 100 Oxymask 2.0 08/25/16 04:00 36.4 59 16 102/63 (76) 100 Oxymask 2.0 08/25/16 00:00 92 08/24/16 20:00 Room Air 08/24/16 19:14 36.7 67 21 103/63 (76) 94 Room Air 08/24/16 16:00 Room Air 08/24/16 15:56 37.2 60 22 118/78 (91) 94 Room Air 08/24/16 12:00 Room Air 08/24/16 11:47 36.9 68 18 122/82 (95) 96 Room Air Physical Exam General Appearance: no apparent distress, + obese Eyes: + pertinent finding (bruising around bilateral orbits) ENT: hearing grossly normal Respiratory/Chest: chest non-tender, lungs clear, normal breath sounds, no respiratory distress, no accessory muscle use Cardiovascular: regular rate, rhythm, no edema, no murmur Abdomen: normal bowel sounds, non tender, soft Extremities: normal range of motion, non-tender, normal inspection, no pedal edema, no calf tenderness Neurologic/Psychiatric: no motor/sensory deficits, alert, normal mood/affect Laboratory Results Last 24 Hours Test 08/25/16 06:34 Prothrombin Time 12.1 SECONDS Prothromb Time International Ratio 1.1 Assessment and Plan This is a 51 year old obese male with a history of HTN, HLD presents with acute bilateral PE; s/p fall and orbital/nasal fracture Acute Bilateral PE 08/25 patient initially presented with dyspnea on exertion CT chest suggested bilateral PE echo showed significant RV strain initially started on IV heparin now on Lovenox injections and bridging with Coumadin s/p IVC filter secondary to DVT in the L LE can transfer to med/surg today encourage ambulation d/c in 1-2 days Fall s/p orbital and nasal fractures 08/25 patient with a fall in the ER fracture of nose and orbit appreciate oromaxillary facial surgery input no surgery needed at this time cipro drops to the eyes outpatient follow-up in 10-14 days Possible MARY will need outpatient sleep study HTN Lisinopril 20mg should probably d/c HCTZ/triamterene due to blood pressure being controlled with just lisinopril HLD continue Zocor DVT ppx Lovenox + Coumadin FULL CODE
[2016-08-25] MEDS: ENOXAPARIN 80 MG/0.8 ML SYR SQ SCH ×2 (10:28→23:27)
[2016-08-25] MEDS: LOVENOX TEACHING KIT SCH (10:28)
[2016-08-25] MEDS: STANDARD WARFARIN NOMOGRAM PO SCH (14:00)
[2016-08-25] MEDS ORDERED: WARFARIN SOD 10 MG TAB PO SCH (16:00)
[2016-08-25] MEDS: SIMVASTATIN 20 MG TAB PO SCH (23:27)
[2016-08-26 07:31] LABS: INR 1.4 (0.9-1.1); PROTHROMBIN TIME (PATIENT) 15.3 SECONDS (9.0-12.0)
[2016-08-26] MEDS: CIPROFLOXACIN HCL 0.3% OP SOLN 2.5 ML BTL OPR SCH (09:48)
[2016-08-26 09:49] VITALS: BP 145/89; PULSE 62
[2016-08-26] MEDS: LOVENOX TEACHING KIT SCH (10:00)
[2016-08-26] MEDS: LISINOPRIL 20 MG TAB PO SCH (10:13)
[2016-08-26] MEDS: ENOXAPARIN 80 MG/0.8 ML SYR SQ SCH ×2 (10:13→16:43)
[2016-08-26] MEDS: ASPIRIN 81 MG ECTAB PO SCH (10:14)
[2016-08-26] MEDS: STANDARD WARFARIN NOMOGRAM PO SCH (14:00)
[2016-08-26 15:33] LABS: ANTITHROMBINIII ACTIVITY** 92 % activity (80-120); B2 GLYCOPROTEIN IGA <9 SAU (<=20); B2 GLYCOPROTEIN IGG <9 SGU (<=20); B2 GLYCOPROTEIN IGM <9 SMU (<=20); LUPUS ANTICOAGULANT** TC36573X Weak Positive (Negative); PROTEIN C ACTIVITY** TC 1777X 99 % (70-180); PROTEIN S ACT(FUNCT)**1779X 111 % (70-150)
[2016-08-26 15:34] VITALS: BP 142/88; PULSE 65; TEMP 36.7; O2SAT 97
[2016-08-26] MEDS ORDERED: WARFARIN SOD 10 MG TAB PO SCH (16:00)
--- NOTE | 2016-08-26 16:05 | Progress Note ---
Internal Med Progress Note Date of Service: Aug 26, 2016. Provider Documentation: SUBJECTIVE: no complain of chest pain or SOB denies of any DUNCAN feels fine comfortable with Lovenox SC shots stable to be discharge home today OBJECTIVE: Vital Signs-as noted below Exam: General-no sign of distress Eyes-sclera non icteric , ecchymosis around orbits improved ENT-improved swelling of nasal bridge Lungs-CTA Heart-regular S1/s2 Abdomen-soft, non tender Extremities-no edema, no calf tenderness Neuro-no focal deficit Lab data as noted below. ASSESSMENT & PLAN: Acute Bilateral PE/MASSIVE /SUB MASSIVE WITH RT HEART STRAIN presented with dyspnea on exertion chest CT shows acute bilateral PE had syncope episode in ER /ECHO shows significant rt heart strain pulm consulted , not a candidate to tPA for recent fall and facial injury /Fx pt was started on IV heparin hypercoag w/up ordered -for unprovoked PE /DVT ( active at baseline , no recent travel hx , no FH of blood clots ) will need usp anticoagulation Lower ext Doppler shows: There is nearly occlusive deep venous thrombosis identified in the left popliteal vein which extends into the calf. Vascular surgery consulted s/p IVC filter placement-has retrievable filter pt will need to follow up with Vacular surgery office in 3-6 months to remove IVC filter started on Lovenox Sub q therapeutic dose bridge with Coumadin on 08/24/16 pt got ~ 5 days of Parenteral bridge tx while in patient INR 1.4 Goal INR 2-3 will need overlapping Lovenox as INR been therapeutic for 2 days Lovenox script sent to [facility] [place] pt is scheduled to follow up with Coagulation clinic in [place] out pt PT/INR check on 08/30/16 , Lovenox can be discontinued after INR been therapeutic for 48 hrs Syncope : possible due to massive to submassive PE felt dizzy and passed out , hitting the floor mentions that the feeling came as a wave, did not had chest pain or sob ECHO shows significant rt heart strain due to PE consulted vascular surgery s/p IVC filter placement cont full anticoagulation with Lovenox /Coumadin Fall s/p orbital and nasal fractures no epistaxis noted at present patient was doing well in the ER; then he fell, does not recall why or how developed epistaxis and fracture of nose and R orbit appreciate input form maxillary facial surgeon; out pt follow up in 2 weeks Cipro eye drop ordered for purulent drainage in eye INCIDENTAL NOTE OF LUNG NODULE : sub centimeter 4 mm low risk pt -no further surveillance needed as per Pulmonology POSSIBLE MARY : out pt sleep study HTN hold triamterene/HCTZ-will prevent hypotension in setting of syncope , fall continue Lisinopril BP stable with ACEI only HCTZ /triamterene D/ness HLD continue Zocor FULL CODE DVT PROPHYLAXIS Lovenox /Coumadin DISPOSITION Discharge home today Maxillofacial surgery follow up in 2 weeks Medicine follow up with Dr Shelton Vital Signs: Date Time Temp Pulse Resp B/P (MAP) Pulse Ox O2 Delivery O2 Flow Rate FiO2 08/26/16 15:34 36.7 65 18 142/88 (106) 97 Room Air 08/26/16 09:49 62 145/89 (107) 08/26/16 07:45 Room Air 08/25/16 23:50 Room Air 08/25/16 23:09 36.9 58 18 134/80 (98) 92 Room Air 08/25/16 16:45 Room Air Lab Results: Results Past 24 Hours Test 08/26/16 06:40 Range/Units Prothrombin Time 15.3 9.0-12.0 SECONDS Prothromb Time International Ratio 1.4 0.9-1.1
--- NOTE | 2016-08-26 16:06 | Discharge Summary ---
Discharge Summary Date of Service Aug 26, 2016. Discharge Summary Admission Date: Aug 22, 2016 at 00:39 Discharge Date: Aug 26, 2016 Discharge Disposition: Home Principal Diagnosis: (1) DVT (deep venous thrombosis) (2) Pulmonary embolism Procedures: IVC FILTER PLACEMENT Consultations: VASCULAR SURGERY PULMONOLOGY Medication Reconciliation New Medications: Warfarin Sod (Coumadin) 7.5 Mg Tab 1 TAB PO DAILY for 30 Days, #30 TABS Ciprofloxacin HCl (Ciprofloxacin HCl) 37 Drops/2.5 Ml Soln 2 DROPS OPR BID for 7 Days, #1 BTL Enoxaparin (Lovenox) 80 Mg/0.8 Ml Inj 160 MG SQ Q12H for 7 Days, #14 EA Continued Medications: Fenofibrate (Tricor ) 134 Mg Cap 134 MG PO DAILY, CAP Lisinopril (Zestril) 20 Mg Tab 20 MG PO DAILY, TAB Simvastatin (Zocor) 20 Mg Tab 20 MG PO QPM, TAB Discontinued Medications: Triamterene/Hctz (Triamterene/Hydrochloroth) 1 Ea Tab 0.5 TAB PO DAILY, TAB TRIAMTERINE/HCTZ 75-50 MG TABLETS, TAKE HALF A TABLET DAILY Referrals At Discharge Follow up Referrals: Physician Referral - Within 1-2 Weeks with Adriel Fuentes D.D.S. Physician Referral - 08/30/16 with Laura Shelton M.D. Admission Information HPI (per Admitting provider): This is a 51 year old obese male with a history of HTN, HLD presents with a few day history of dyspnea on exertion; states that he's had issues with his breathing nocturnally; but now exertion causes an issue. Upon presentation, noted to be hypoxic - d-dimer elevated. He had a CT of the chest and it showed acute bilateral PEs. Patient was doing okay in the ER, but then had a fall in the ER - he does not know why he fell, he was going to the bathroom, came back into bed, and then he fell forward onto his face. Developed nose bleed and R orbit laceration. CT of the facial bones showed orbital fracture and nasal fracture. Developed epistaxis which improved with pressure. After speaking with oromaxillofacial literacy consultant, it was decided that we could start IV heparin. Patient is doing better after IV heparin started. No other complaints. Physical Exam (per Admitting): General Appearance: no apparent distress, + obese Head: + pertinent finding (R orbital bruising/swelling, laceration at inferior orbit, s/p sutures; nasal bruising) ENT: hearing grossly normal Neck: supple Respiratory/Chest: chest non-tender, lungs clear, normal breath sounds, no respiratory distress, no accessory muscle use Cardiovascular: regular rate, rhythm, no edema, no murmur, normal peripheral pulses Abdomen/GI: normal bowel sounds, non tender, soft Extremities/Musculoskelatal: no calf tenderness, normal capillary refill, no pedal edema Neurologic/Psych: no motor/sensory deficits, alert, normal mood/affect Skin: normal color Lymphatic: no adenopathy Hospital Course Acute Bilateral PE/MASSIVE /SUB MASSIVE WITH RT HEART STRAIN presented with dyspnea on exertion chest CT shows acute bilateral PE had syncope episode in ER /ECHO shows significant rt heart strain pulm consulted , not a candidate to tPA for recent fall and facial injury /Fx pt was started on IV heparin hypercoag w/up ordered -for unprovoked PE /DVT ( active at baseline , no recent travel hx , no FH of blood clots ) will need nursing home anticoagulation Lower ext Doppler shows: There is nearly occlusive deep venous thrombosis identified in the left popliteal vein which extends into the calf. Vascular surgery consulted s/p IVC filter placement-has retrievable filter pt will need to follow up with Vacular surgery office in 3-6 months to remove IVC filter started on Lovenox Sub q therapeutic dose bridge with Coumadin on 08/24/16 pt got ~ 5 days of Parenteral bridge tx while in patient INR 1.4 Goal INR 2-3 will need overlapping Lovenox as INR been therapeutic for 2 days Lovenox script sent to [facility] [place] pt is scheduled to follow up with Coagulation clinic in [place] out pt PT/INR check on 08/30/16 , Lovenox can be discontinued after INR been therapeutic for 48 hrs Syncope : possible due to massive to submassive PE felt dizzy and passed out , hitting the floor mentions that the feeling came as a wave, did not had chest pain or sob ECHO shows significant rt heart strain due to PE consulted vascular surgery s/p IVC filter placement cont full anticoagulation with Lovenox /Coumadin Fall s/p orbital and nasal fractures no epistaxis noted at present patient was doing well in the ER; then he fell, does not recall why or how developed epistaxis and fracture of nose and R orbit appreciate input form maxillary facial surgeon; out pt follow up in 2 weeks Cipro eye drop ordered for purulent drainage in eye INCIDENTAL NOTE OF LUNG NODULE : sub centimeter 4 mm low risk pt -no further surveillance needed as per Pulmonology POSSIBLE MARY : out pt sleep study HTN hold triamterene/HCTZ-will prevent hypotension in setting of syncope , fall continue Lisinopril BP stable with ACEI only HCTZ /triamterene D/ness HLD continue Zocor FULL CODE DVT PROPHYLAXIS Lovenox /Coumadin DISPOSITION Discharge home today Maxillofacial surgery follow up in 2 weeks Medicine follow up with Dr Shelton Total time spent on discharge = 40 MINS This includes examination of the patient, discharge planning, medication reconciliation, and communication with other providers. Discharge Instructions DI: VTE Warfarin v4 Discharge Instructions Date of Service Aug 24, 2016. Admission Reason for Admission: Facial Laceration,Nasal Bone Fractures,Pe Discharge Discharge Diagnosis / Problem: (1) DVT (deep venous thrombosis) (2) Pulmonary embolism VTE Date & Time Date of VTE Diagnosis: Aug 21, 2016 Time of VTE Diagnosis: 20:55 Discharge Goals Goal(s): Decrease discomfort, Diagnostic testing, Therapeutic intervention Activity Recommendations Activity Limitations: resume your previous activity . Instructions / Follow-Up Instructions / Follow-Up HOSPITAL FOLLOW UP : 08/30/2016 1:[address] Laura Shelton MD Internal Medicine [facility] PLEASE FOLLOW UP WITH ANTICOAGULATION CLINIC FOR MONITORING OF PT/INR LAB WORK : PT/INR ON Sunday08/28/16 OUT PT COLONOSCOPY NEEDS TO BE SCHEDULED BY FAMILY PHYSICIAN MAXILLOFACIAL SURGERY DR FUENTES FOLLOWUP IN 2 WEEKS PLEASE SCHEDULE SLEEP STUDY OUT PATIENT FOR OBSTRUCTIVE SLEEP APNEA NEED VASCULAR SURGERY FOLLOW UP WITH DR QUEEN IN 3-6 MONTHS TO REMOVE IVC FILTER PLEASE CALL OFFICE FOR APPOINTMENT Medication Instructions: * Warfarin is a medicine prescribed to prevent blood clots * Warfarin will thin your blood and help prevent new clots * Take your medications exactly as directed * Never skip a dose. Never take a double dose. If you miss a dose, take it as soon as you remember * It is important for your doctor to monitor your prothrombin time (PT). This is a lab test * Keep your appointment for lab tests Risk of Adverse Drug Reactions and Interactions: * Warfarin increases your risk of bleeding * The food you eat and other medications you take can affect how Warfarin works in your body * Ask your doctor about daily aspirin therapy * It is very important to talk with your doctor about all of the other medicines , antibiotics, vitamins or herbal products that you are taking * All of your medication must be approved by your doctor, including new medicines, as well as medicines you have taken before you started taking Warfarin Diet: * In order for Warfarin to work properly, it is important to keep your intake of Vitamin K as consistent as possible * You should avoid any sudden change in Vitamin K intake * Report any significant changes in your diet or weight to your doctor Call your Primary Care doctor if you experience any of the following: * Swelling or Pain in your leg * Sudden, continuous pain deep in a muscle * Pain that worsens when you are active or when you stand still for a long time * Chest Pain * Sudden Shortness of Breath * Rapid or pounding heart beat * Fainting * Dizziness * Cough with blood or bloody sputum * Sweating more than normal * Bruises * Heavy or uncontrolled bleeding * Blood in your urine, stool or vomit * Black or tarry stools Caring for Your Self at Home: * Avoid sitting, standing or lying down for long periods without moving your legs and feet * When traveling by car, stop to get out and move around at least once every 3 hours * On long airplane, train or bus rides, get up and move around when possible * If you can't get up, wiggle your toes and tighten your calves to keep your blood moving Follow Up: It is important for you to keep your follow up appointments with your medical provider. Current Hospital Diet Patient's current hospital diet: AHA Diet (Heart Healthy) Discharge Diet Recommended Diet: AHA Diet (Heart Healthy) Procedures Procedures Performed: Insertion of inferior vena cava filter, jugular approach conscious sedation ([id number]) Pending Studies Studies pending at discharge: yes List of pending studies: PT/INR ON 08/28/[address] SHELTON OFFICE FOR HYPERCOAGULABLE LAB WORK -REPORTS Medical Emergencies . Who to Call and When: Medical Emergencies: If at any time you feel your situation is an emergency, please call 911 immediately. . Non-Emergent Contact Non-Emergency issues call your: Primary Care Provider . . "Provider Documentation" section prepared by Jossie Monk. . VTE Core Measure Inpt VTE Proph given/why not?: Enoxaparin (Lovenox)SQ, Other Anticoagulation Reason no anticoag overlap I/P: Treatment provided - N/A Reason no anticoag overlap @DC: Treatment provided - N/A Additional Copies To Laura Shelton M.D.
[2016-08-26 16:29] VITALS: BP 142/88; PULSE 65; TEMP 36.7; O2SAT 97
== END 2016-08-26 17:38 | disposition home or self-care (01) | DRG 166 ==
LOC: C.EDB 16:04 → EDSEX 16:04 → C.2T 08-22 00:39 → ENRESERV 08-22 00:45 → C.MSN 08-25 11:23
PROVIDERS: ADMIT Family Medicine; ATTEND Hospitalist
PROC: 06H03DZ Insertion of Intraluminal Device into Inferior Vena Cava, Percutaneous Approach (ICD-10-PCS; 2016-08-22)
PROC: 0JQ13ZZ Repair Face Subcutaneous Tissue and Fascia, Percutaneous Approach (ICD-10-PCS; principal; 2016-08-22 13:15)
DX: I26.02 Saddle embolus of pulmonary artery with acute cor pulmonale (principal); S02.31XA Fracture of orbital floor, right side, initial encounter for closed fracture; I82.432 Acute embolism and thrombosis of left popliteal vein; I51.9 Heart disease, unspecified; S01.81XA Laceration without foreign body of other part of head, initial encounter; S02.2XXA Fracture of nasal bones, initial encounter for closed fracture; I10 Essential (primary) hypertension; E78.5 Hyperlipidemia, unspecified; W19.XXXA Unspecified fall, initial encounter; E66.01 Morbid (severe) obesity due to excess calories; Y92.238 Other place in hospital as the place of occurrence of the external cause; R91.1 Solitary pulmonary nodule

== ENCOUNTER 2016-12-28 11:02 | Day surgery (SDC) | payer OTHER ==
[~2016-12-28] VITALS: Ht 182.9 cm; Wt 173.0 kg
[~2016-12-28 11:02] MED LIST: CLINDAMYCIN 600 MG/54 ML D5W IV SCH; CLXOPS3 OPR; CMD75 PO; FENO134C2 PO; LISI-725 PO; LVNIS80 SQ; SIMV20TA2 PO; SODIUM CHLORIDE 0.9% 1000ML IV SCH
[2016-12-28 11:30] VITALS: BP 141/85; PULSE 69; TEMP 36.6; O2SAT 95; Ht 182.9 cm; Wt 173.0 kg
[2016-12-28] MEDS ORDERED: WARF7.5T PO ×2 (11:40)
[2016-12-28] MEDS ORDERED: HYG/25 PO (11:43)
--- NOTE | 2016-12-28 11:43 | History and Physical ---
History & Physical Date of Service Dec 28, 2016. History & Physical Chief Complaint DVT/PE/R heart strain, post IVC filter placement History of Present Illness The patient is a 51 year old male with hx of hypertension and hypercholesterolemia, admitted d/t PE/DVT and facial fx which occurred after falling while in ED and striking his face. Filter was placed. He is here now for removal of the filter. Denies JOHNSON, fever, chills, chest pain, abd pain, N/V, rest pain, claudication, other complaints. Allergies Coded Allergies: Penicillins (Verified Allergy, Mild, Hives, 08/21/16) Home Medications Scheduled Fenofibrate (Tricor ), 134 MG PO DAILY Lisinopril (Zestril), 20 MG PO DAILY Simvastatin (Zocor), 20 MG PO QPM Triamterene/Hctz (Triamterene/Hydrochloroth), 0.5 TAB PO DAILY Problem List Medical Problems: (1) Hypertension Surgical / Medical History Hx Cardiac Surgery: No Hx Abdominal Surgery: No Hx Cancer Surgery: No Hx Thoracic Surgery: No Hx Orthopedic: No Hx Urinary Tract Surgery: No HX Other Surgery: Yes (LT EYE REPAIR, TONSILECTOMY) Past Medical/Surgical History: High Cholesterol, Hypertension Family History + HTN Social History Smoking Status: Never Smoker Hx Tobacco Use In Past Year?: No Hx Alcohol Use - Type & Amnt: Yes (BEER/WEEKLY) Hx Substance Use -Type & Amnt: No Review of Systems Constitutional: + malaise, No chills Skin: No change in color Eyes: No visual changes ENMT: No sore throat Respiratory: - DUNCAN, - short of breath, No cough, No hemoptysis Cardiovascular: No chest pain, No palpitations, No syncope, No edema, No intermittent claudication Gastrointestinal: No abdominal pain, No nausea, No vomiting Neurologic: No dizziness, No headache, No lethargy, No numbness, No tingling Physical Exam Constitutional: General Apperance: well-nourished, well-developed, obese Level of Distress: NAD, Psychiatric: Mental Status: active & alert, normal mood, normal affect Orientation: oriented except where noted, to time, to place, to person Memory: recent memory normal, remote memory normal Head: normocephalic Eyes: EOM: EOMI Neck: supple, trachea midline Lungs: Respiratory effort: no dyspnea Auscultation: no wheezing, no rales/crackles, no rhonchi, normal breath sounds Cardiovascular: Apical Impulse: not displaced Heart Auscultation: RRR, no rubs, no gallops Peripheral Pulses: Pulses: full and equal, in all extremities except if noted Bruits: none appreciated Carotid Pulse: normal on the left, normal on the right Brachial Pulses: normal on the left, normal on the right Radial Pulse: normal on the left, normal on the right Femoral Pulse: normal on the left, normal on the right Posterior Tibialis Pulse: decreased on the left, decreased on the right Dorsalis Pedis Pulse: decreased on the left, decreased on the right Abdomen: Bowel Sounds: normal Inspection & Palpation: soft, non-distended, no tenderness, guarding & rebound Musculoskeletal: normal strength (5/5 throughout), normal tone Extremities: Upper Right: no cyanosis, no edema, no varicosities Upper Left: no cyanosis, no edema, no varicosities Lower Right: no cyanosis, no edema, no varicosities Lower Left: no cyanosis, no edema, no varicosities Neurologic: Cranial Nerves: grossly intact Sensation: grossly intact Assessment and Plan Imp: Post filter insertion Plan: Patient is admitted for removal of his filter. I have discussed the risks options and benefits of the procedure with the patient. The patient understands the risks options and benefits and agrees to the procedure.
[2016-12-28 12:25] LABS: BUN/CREATININE RATIO 17.2 (10-20); CREATININE 1.04 mg/dl (0.60-1.40)
[2016-12-28 12:38] VITALS: BP 141/85; TEMP 36.6; O2SAT 95
[2016-12-28] MEDS ORDERED: MIDAZOLAM HCL 1 MG/ML 2ML VIAL ONE (12:42)
[2016-12-28] MEDS ORDERED: FENTANYL CITRATE INJ 50 MCG/1 ML 2 ML VIAL ONE (12:42)
--- NOTE | 2016-12-28 12:44 | History & Physical Bridge Note ---
H&P Re-Evaluation Bridge Note: I have examined the patient, reviewed the History & Physical and in the interval since the performance of the History & Physical I have noted the following changes of clinical significance: No changes noted
--- NOTE | 2016-12-28 12:44 | Procedure Note ---
Pre-Mod Sedation Assessment General Date of Moderate Sedation: Dec 28, 2016. Vital Signs: Vital Signs Past 12 Hours Date Time Temp Pulse Resp B/P (MAP) Pulse Ox O2 Delivery O2 Flow Rate FiO2 12/28/16 12:38 36.6 20 141/85 95 Room Air 12/28/16 11:30 36.6 69 20 141/85 (103) 95 Room Air Pre-Sedation Airway Assessment Oral Cavity: WNL Short Thick Neck: No Hx of Sleep Apnea: Yes Smoking Status: Never Smoker Mallampati Classification: Class I ASA Classification: Class II Notes The planned sedation has been discussed with the patient and consent obtained. I have identified the patient, determined the appropriateness of sedation and have assessed the patient immediately prior to the procedure. All medicine(s) and interventions are by my order.
[2016-12-28] MEDS ORDERED: ONDANSETRON INJ 2 MG/ML 2 ML VIAL ONE (13:15)
[2016-12-28] MEDS ORDERED: LIDOCAINE HCL 1% 20 ML VIAL INJ ONE (13:16)
[2016-12-28] MEDS ORDERED: HYDROCORTISONE SOD SUCCINATE 100 MG/2 ML VIAL ONE (13:16)
[2016-12-28] MEDS ORDERED: FENTANYL CITRATE INJ 50 MCG/1 ML 2 ML VIAL IV ONE (13:19)
[2016-12-28] MEDS ORDERED: ONDANSETRON INJ 2 MG/ML 2 ML VIAL IV ONE (13:19)
[2016-12-28] MEDS ORDERED: HYDROCORTISONE SOD SUCCINATE 100 MG/2 ML VIAL IV ONE (13:19)
[2016-12-28] MEDS ORDERED: MIDAZOLAM HCL 1 MG/ML 2ML VIAL IV ONE (13:19)
[2016-12-28] MEDS ORDERED: IODIXANOL (VISIPAQUE) 270 MG/ML 150ML XX ONE (13:30)
[2016-12-28] MEDS ORDERED: OXYCODONE/ACETAMINOPHEN 5-325 TAB PO PRN (13:30)
--- NOTE | 2016-12-28 13:31 | Procedure Note ---
Post-Moderate Sedation Plan General Date of Moderate Sedation Dec 28, 2016. Vital Signs: Vital Signs Past 12 Hours Date Time Temp Pulse Resp B/P (MAP) Pulse Ox O2 Delivery O2 Flow Rate FiO2 12/28/16 12:38 36.6 20 141/85 95 Room Air 12/28/16 11:30 36.6 69 20 141/85 (103) 95 Room Air Review - Discharge Plan Post Moderate Sedation Plan: On clinical assessment, the patient appears to have tolerated the conscious sedation without complications. Patient is recovering as anticipated. Patient will continue to be monitored by nursing and may be discharged when conscious sedation discharge criteria are met.
--- NOTE | 2016-12-28 13:35 | [facility] Operative Report ---
Operative Report Operative Date Dec 28, 2016. Pre-Operative Diagnosis post filter Post-Operative Diagnosis same Procedure(s) Performed Removal Of Inferior Vena Cava Filter, Ultrasound Localization Of Right Internal Jugular Vein, Moderate Concious Sedation [address] Donovan Radio Producer Surgeon(s) none Estimated Blood Loss 3 ml Findings no cava clot seen Specimens A. explanted inferior vena cava filter Anesthesia Local with sedation Complication(s) None Indications This is a 51-year-old male who had a filter placed due to DVT, PE, and significant right heart strain. He is doing much better and is here for his filter removal. I have discussed the risks options and benefits of the procedure with the patient. The patient understands the risks options and benefits and agrees to the procedure. Description of Procedure The patient was brought to the angio suite and placed in the supine position. The right side of the neck was prepped and draped in the usual fashion. The right internal jugular vein was located with ultrasound. It was patent, compressed easily, and had no filling defects. The vein was then punctured under ultrasound visualization. A guidewire was then passed centrally into the inferior vena cava under fluoroscopic guidance. The puncture site was then dilated and the filter removal sheath inserted. It was passed to the infra renal vena cava above the filter. A venacavagram was done which showed no cava clot in the cava or filter. The filter removal snare was then passed through the sheath and the hook of the filter was snared.. The snare was then tightened and the sheath pushed in over the filter. It retracted easily. The filter was removed. Post removal venogram showed no extravasation of contrast. The sheath was the removed. Pressure was applied to the puncture site. Adequate hemostasis was obtained and a sterile dressing was applied. The patient left the angio suite in good condition and tolerated the procedure well. I attest to the content of the Intraoperative Record and any orders documented therein. Any exceptions are noted below.
--- NOTE | 2016-12-28 13:37 | Discharge Instructions ---
Discharge Instructions Date of Service Dec 28, 2016. Visit Reason for Visit: Pulmonary Embolism Discharge Discharge Diagnosis / Problem: Post filter insertion Discharge Goals Goal(s): Therapeutic intervention Activity Recommendations Activity Limitations: resume your previous activity Anesthesia . Post Anesthesia Instructions: If you have had General Anesthesia or IV Sedation: * Do not drive today. * Resume driving when surgeon permits. * Do not make important decisions or sign legal documents today. * Call surgeon for: 1. Temperature elevations greater than 101 degrees F. 2. Uncontrollable pain. 3. Excessive bleeding. 4. Persistent nausea and vomiting. 5. Medication intolerance (nausea, vomiting or rash). * For nausea and vomiting use only clear liquids such as: tea, soda, bouillon until nausea subsides, then gradually increase diet as tolerated. * If you have any concerns or questions, call your surgeon's office. If physician is unavailable and it is an emergency, call 911 or go to the nearest emergency room. . Instructions / Follow-Up Instructions / Follow-Up Call [phone] to schedule a follow up appointment if one not already scheduled. SPECIAL CARE INSTRUCTIONS: Medications: * Continue to take your medications as directed. If you have been given a prescription for Plavix, please fill it immediately and take as directed. Incision Care: * Your puncture site may have some bruising and minor swelling for about one week. * You will have a small dressing covering your puncture site. You may remove the dressing after 24 hours and shower. You may let the warm soapy water run over it, but be sure to dry the puncture site well and keep it dry. * DO NOT IMMERSE THE INCISION IN A TUB/POOL/etc. UNTIL HEALED. * Puncture sites should be kept covered with a band-aid until it begins to heal. Restrictions: * Depending on whether you leg or arm was punctured to access the arteries, you will be required to lay flat, hold your arm still, or both, for about 4 hours after the procedure to prevent bleeding. * Limit your activity for the first 48 hours. You may walk and go up and down steps. Avoid excessive bending or movement at the puncture site. Possible Complications: * Excessive Swelling - after blood flow is improved you may notice increased swelling in the lower legs. This is a normal response. This usually depends on the amount of blockages in the leg, how long they have been there prior to your procedure and how much blood flow was restored. Elevating your legs will help to improve this. Please notify our office ([phone] ) if the swelling does not go away after lying in bed overnight. * Infection/Drainage/Bleeding - Drainage or bleeding from the puncture site should be minimal. If you have excessive bleeding or drainage, call our office ([phone]) right away. * Pain - You may experience some mild pain or soreness at your puncture site. If your pain does not improve, please contact our office ([phone]). Call your doctor and seek emergent treatment if you develop: * Temperature above 101 degrees * Any fever or chills * Any redness or purulent drainage from the puncture site * Any new dusky/blue colored toes or feet with coolness or sharp or aching pain. SKIN IRRITATION: * You may experience some redness and/or swelling in the area where radiation was administered. If any skin irritation occurs, please contact your family physician. FOLLOW UP VISIT: Keep any scheduled doctor appointments. Diet Recommendations Recommended Home Diet: resume previous diet Procedures Procedures Performed: Removal Of Inferior Vena Cava Filter, Ultrasound Localization Of Right Internal Jugular Vein, Moderate Concious Sedation 1319 to 1330 Pending Studies Studies pending at discharge: no Medical Emergencies . Who to Call and When: Medical Emergencies: If at any time you feel your situation is an emergency, please call 911 immediately. . Non-Emergent Contact Non-Emergency issues call your: Surgeon . . "Provider Documentation" section prepared by Alfredo Donovan. .
[2016-12-28 13:42] VITALS: BP 140/67; PULSE 70; TEMP 36.7; O2SAT 93
[2016-12-28 14:12] VITALS: BP 163/73; PULSE 75; TEMP 36.7; O2SAT 95
== END 2016-12-28 14:20 | disposition home or self-care (01) ==
LOC: C.ACU 11:02
PROVIDERS: ATTEND Surgery Vascular Surgery
DX: Z45.89 Encounter for adjustment and management of other implanted devices (principal); I10 Essential (primary) hypertension; E78.00 Pure hypercholesterolemia, unspecified; Z90.89 Acquired absence of other organs; Z82.49 Family history of ischemic heart disease and other diseases of the circulatory system; Z91.81 History of falling; Z87.81 Personal history of (healed) traumatic fracture; Z86.718 Personal history of other venous thrombosis and embolism; Z86.711 Personal history of pulmonary embolism; Z88.0 Allergy status to penicillin

== ENCOUNTER 2019-07-28 15:27 | Observation (INO) ==
--- NOTE | 2019-07-28 17:29 | Emergency Department Note ---
Impression & Plan Acute kidney injury, Cellulitis of left lower extremity, Hypotension ED Provider Note CHIEF COMPLAINT: Left lower leg pain, redness and warmth x2 days HISTORY OF PRESENT ILLNESS: Patient is a 54-year-old male who presents the emergency department for evaluation of left lower leg pain, redness and swelling. He is a poor historian, he states that the symptoms started this past weekend over the last 2 to 3 days, but he is not 100% clear on the timing as he states that he "slept all day on Sunday." Is unusual for him, he cannot explain the excessive fatigue. He notes that he had discomfort in the left lower leg with weightbearing. He appeared much laid around all weekend. He denies any fever, chills, sweats or nausea or vomiting. He denies a history. He reports that he is not diabetic. He does have a history of DVT and PE in 2017. He is not currently anticoagulated. He denies chest pain, cough, shortness of breath or palpitations. He was worked up and there was reportedly no underlying coagulation disorder. He does take a baby aspirin daily. He denies any trauma or injury to the leg that he can recall. He has no symptoms in the right leg. He currently rates his discomfort a 10/10. REVIEW OF SYSTEMS: Review of systems as per HPI. All other systems reviewed were negative. 10 systems reviewed. PMH: Electronic medical records are reviewed and summarized as above/below. See Problem List. SOCIAL HISTORY: Patient lives at home. He does not smoke. PHYSICAL EXAM: Vital Signs: Reviewed Nurse's notes. GENERAL: Patient is a morbidly obese 54-year-old male who is awake and alert and laying on the gurney in no acute distress. LUNGS: Clear to auscultation and breath sounds equal, no wheezes, rales, or rhonchi. HEART: Regular rate and rhythm without murmurs, ectopy, gallops, or rubs. NEUROLOGICAL: Alert and cooperative. Sensory and motor functions grossly intact. INTEGUMENTARY: Examination of the left lower leg note a well demarcated, slightly raised, erythematous, warm skin lesion on the left lower leg. It involves the anterior zurita, and wraps around to the posterior aspect. It is circumferential. There are faint petechiae noted, but no blistering, vesicles or skin sloughing. It is moderately tender. There is no break in the skin at this time. There is no lymphangitic streaking. There is no pain in the left knee or ankle. Muscle bellies of the calf are soft. There is no pain in the thigh. She reports she will be left lower extremity is full. EMERGENCY DEPARTMENT COURSE: The patient was seen and assessed as above. Old records were reviewed. He presents the emergency department for evaluation of pain, redness and swelling in the left lower leg that appears more consistent with cellulitis on exam. He does have a DVT history. He is afebrile, vital signs were stable in triage, however nursing staff notified me that his blood pressure was running low, in the 80s in the 90s systolically. He is on several blood pressure medications including lisinopril, metoprolol and chlorthalidone. They did have some difficulty getting blood work due to ED census. He was given a liter bolus of normal saline solution. CBC with differential, BMP, coags and lactic acid were ordered. Ultrasound of the left lower extremity was obtained. The patient was given 2 g of ceftriaxone IV, he does report a penicillin aller gy, but has hives with this. I did review the patient with attending physician. Urinalysis was ordered. Laboratory studies noted a normal white count, 10,600, left shift noted but no acute bands. He is not anemic. Coags are normal. Chemistries reveal a significantly elevated BUN and creatinine at 29 and 2.49, most recent renal functions are from 2017, and creatinine was 1.04. Lactic acid is normal at 1.9, blood cultures are pending. Ultrasound of the left lower extremity was negative for acute DVT. The patient was reassessed when he returned from ultrasound. I did check his blood pressure at that time and it was 93/50. Nurse came in to hang his IV antibiotics. Laboratory and diagnostic imaging findings were reviewed with the patient. Discussed with the patient has normal blood pressure readings in the emergency department and the abnormal kidney functions. He admits that since he has been feeling off since Sunday, he actually probably missed some of his blood pressure medications over the last 1 to 2 days. He states "I'm all messed up. I went to [place] on Sunday to buy a gun off a chiquis, and that's the last thing I remember." Discussed with him that he would be brought into the hospital for further care and work-up. He was agreeable to this. Patient was r eviewed with the [facility] hospitalist service for admission/observation for further care and management. Differential diagnoses entertained included DVT, superficial thrombophlebitis, cellulitis, abscess, necrotizing fasciitis, electrolyte or metabolic abnormality, medication side effect, among others. Past Med/Surg History Medical History DVT (deep venous thrombosis) (Resolved) Dyslipidemia (Chronic) History of pulmonary embolism Hypertension (Chronic) Morbid obesity (Chronic) Surgical History S/P IVC filter (Resolved) Social History Preferred Language: Irish Feels Safe at Home: Yes Smoking Status: Never smoker Allergies Allergies Allergy/AdvReac Type Severity Reaction Status Date / Time Penicillins Allergy Mild Hives Verified 12/28/16 11:28 IV CONTRAST DYE AdvReac Intermediate PASSED OUT Uncoded 12/28/16 11:30 Home Meds Home Medications Medication Instructions Recorded Confirmed Fenofibrate (Tricor ) 134 mg PO DAILY #0 cap 08/21/16 Lisinopril (Zestril) 20 mg PO DAILY #0 tab 08/21/16 Simvastatin (Zocor) 20 mg PO QPM #0 tab 08/21/16 CHLORTHALIDONE (HYGROTON) 1 tab PO DAILY 30 Days #30 tab 12/28/16 WARFARIN SODIUM (COUMADIN) 1 tab PO 5XWK 90 Days #0 tab 12/28/16 WARFARIN SODIUM (COUMADIN) 1.5 tab PO 2XWK 90 Days #0 tab 12/28/16 Results & Data (ED) Vital Signs Vital Signs - 24 hr 07/28/19 15:34 07/28/19 18:37 Temperature 36.8 C Temperature Source Oral Pulse Rate 88 Pulse Rate [Right Finger] 80 Respiratory Rate 16 20 Respiratory Depth Normal Blood Pressure 101/73 Blood Pressure [Right Arm] 90/53 L Blood Pressure Mean 82 Blood Pressure Mean [Right Arm] 65 Pulse Oximetry 94 97 Oxygen Delivery Method Room Air Room Air Sepsis Recent Fever Within 48 Hours No Sepsis New/Unexplained Change in Mental Status No Sepsis Action Taken by Nursing No Action Required Home Medications Current Medication List: was personally reviewed by me Laboratory Data Attestation: I reviewed the patient's lab results. Result diagrams: 07/28/19 18:39 07/28/19 18:39 Lab Results 07/28/19 07/28/19 07/28/19 Range/Units 18:39 18:39 18:39 WBC 10.65 (4.8-10.8) K/uL RBC 5.05 (4.7-6.1) M/uL Hgb 15.2 (14.0-18.0) g/dL Hct 46.1 (42-52) % MCV 91.3 (80-100) fL MCH 30.1 (25-34) pg MCHC 33.0 (32-36) g/dL RDW Std Deviation 51.4 H (36.4-46.3) fL RDW Coeff of Sonali 15.4 H (11.5-14.5) % Plt Count 171 (130-400) K/uL MPV 10.5 H (7.4-10.4) fL Immature Gran % (Auto) 0.2 % Neut % (Auto) 82.9 % Lymph % (Auto) 11.3 % [place] % (Auto) 5.0 % Eos % (Auto) 0.5 % Baso % (Auto) 0.1 % Immature Gran # (Auto) 0.02 (0.00-0.02) K/uL Neut # (Auto) 8.84 H (1.4-6.5) K/uL Lymph # (Auto) 1.20 (1.2-3.4) K/uL [place] # (Auto) 0.53 (0.11-0.59) K/uL Eos # (Auto) 0.05 (0-0.5) K/uL Baso # (Auto) 0.01 (0-0.2) K/uL PT 10.7 (9.0-12.0) Seconds INR 1.0 (0.9-1.1) APTT 27.0 (21.0-31.0) Seconds PTT Ratio 1.0 Sodium 137 (136-145) mmol/L Potassium 3.6 (3.5-5.1) mmol/L Chloride 97 L (98-107) mmol/L Carbon Dioxide 36 H (21-32) mmol/L Anion Gap 4.0 (3-11) BUN 29 H (7-18) mg/dl Creatinine 2.49 H (0.6-1.4) mg/dl Est Cr Clr Drug Dosing Not Reportable Est GFR ( Amer) 32.2 Est GFR (Non-Af Amer) 27.8 BUN/Creatinine Ratio 11.7 (10-20) Glucose 178 H (70-99) mg/dl Lactate (0.4-2.0) mmol/L Calcium 8.7 (8.5-10.1) mg/dl 07/28/19 Range/Units 18:45 WBC (4.8-10.8) K/uL RBC (4.7-6.1) M/uL Hgb (14.0-18.0) g/dL Hct (42-52) % MCV (80-100) fL MCH (25-34) pg MCHC (32-36) g/dL RDW Std Deviation (36.4-46.3) fL RDW Coeff of Sonali (11.5-14.5) % Plt Count (130-400) K/uL MPV (7.4-10.4) fL Immature Gran % (Auto) % Neut % (Auto) % Lymph % (Auto) % [place] % (Auto) % Eos % (Auto) % Baso % (Auto) % Immature Gran # (Auto) (0.00-0.02) K/uL Neut # (Auto) (1.4-6.5) K/uL Lymph # (Auto) (1.2-3.4) K/uL [place] # (Auto) (0.11-0.59) K/uL Eos # (Auto) (0-0.5) K/uL Baso # (Auto) (0-0.2) K/uL PT (9.0-12.0) Seconds INR (0.9-1.1) APTT (21.0-31.0) Seconds PTT Ratio Sodium (136-145) mmol/L Potassium (3.5-5.1) mmol/L Chloride (98-107) mmol/L Carbon Dioxide (21-32) mmol/L Anion Gap (3-11) BUN (7-18) mg/dl Creatinine (0.6-1.4) mg/dl Est Cr Clr Drug Dosing Est GFR ( Amer) Est GFR (Non-Af Amer) BUN/Creatinine Ratio (10-20) Glucose (70-99) mg/dl Lactate 1.9 (0.4-2.0) mmol/L Calcium (8.5-10.1) mg/dl Administered Medications Discontinued Medications Sodium Chloride (Nss 1000ml) 1,000 mls @ 999 mls/hr IV .[id number] STEPHANY Stop: 07/28/19 19:48 Last Admin: 07/28/19 19:13 Dose: 999 mls/hr Documented by: [id number] Ceftriaxone Sodium (Rocephin) 2,000 mg in 70 mls @ 140 mls/hr IV NOW STA Stop: 07/28/19 20:13 Last Admin: 07/28/19 20:55 Dose: 140 mls/hr Documented by: [id number] Imaging Data Attestation: I personally reviewed and interpreted this imaging study as follows: Radiologist's Impression: ULTRASOUND LEFT LOWER EXTREMITY VENOUS CLINICAL HISTORY: Left leg pain. COMPARISON STUDY: Bilateral lower extremity venous ultrasound dated 08/22/2016. TECHNIQUE: Real-time, grayscale, and color Doppler sonography of the deep veins of the left lower extremity was performed from the inguinal crease to the calf. Compression and augmentation were utilized. FINDINGS: There is no sonographic evidence of deep venous thrombosis identified in the left lower extremity. The common femoral, superficial femoral, and popliteal veins are patent and normally compressible. The greater saphenous vein and the profunda femoris vein at the junction with the common femoral vein are clear. The visualized calf veins are patent. IMPRESSION: There is no sonographic evidence of deep venous thrombosis identified in the left lower extremity. Blood Pressure Blood Pressure Findings: Low blood pressure Blood Pressure Disposition: further management by hospitalist Discharge Plan Visit Data Chief Complaint: Leg Injury/Pain Stated Complaint: RED AND PAINFUL LEFT LEG, DIARRHEA ED Provider: Junior Mcdonald ED Midlevel Provider: Mode Marques Discharge Problem: Acute kidney injury, Cellulitis of left lower extremity, Hypotension Patient Disposition: Being Evaluated by Hospitalist Forms Stand Alone Forms: [facility] [employer] Prescriptions Prescriptions: No Action Fenofibrate (Tricor ) 134 MG capsule 134 mg PO DAILY Qty: 0 RF: 0 Lisinopril (Zestril) 20 MG tablet 20 mg PO DAILY Qty: 0 RF: 0 Simvastatin (Zocor) 20 MG tablet 20 mg PO QPM Qty: 0 RF: 0 WARFARIN SODIUM (COUMADIN) 7.5 MG tablet 1 tab PO 5XWK 90 Days Qty: 0 RF: 3 WARFARIN SODIUM (COUMADIN) 7.5 MG tablet 1.5 tab PO 2XWK 90 Days Qty: 0 RF: 3 CHLORTHALIDONE (HYGROTON) 25 MG tablet 1 tab PO DAILY 30 Days Qty: 30 RF: 5 Referrals Referrals: Estevan Felix MD [Primary Care Provider] -
[2019-07-28] MEDS ORDERED: SODIUM CHLORIDE 0.9% 1000ML 1,000 ML IV SCH (18:48)
[2019-07-28 18:59] LABS: Basophils # (auto) 0.01 K/uL (0-0.2); Basophils % (auto) 0.1 %; Eosinophils # (auto) 0.05 K/uL (0-0.5); Eosinophils % (auto) 0.5 %; Hematocrit (blood only) 46.1 % (42-52); Hemoglobin 15.2 g/dL (14.0-18.0); Immature Granulocytes # (auto) 0.02 K/uL (0.00-0.02); Immature Granulocytes % (auto) 0.2 %; Lymphocytes % (auto) 11.3 %; Mean Corpuscular Hemoglobin 30.1 pg (25-34); Mean Corpuscular Volume 91.3 fL (80-100); Mean Platelet Volume 10.5 fL (7.4-10.4); Monocytes # (auto) 0.53 K/uL (0.11-0.59); Neutrophils # (auto) 8.84 K/uL (1.4-6.5); Neutrophils % (auto) 82.9 %; Platelet Count 171 K/uL (130-400); RDW Coefficient of Variation 15.4 % (11.5-14.5); RDW Standard Deviation 51.4 fL (36.4-46.3); Red Blood Count 5.05 M/uL (4.7-6.1); White Blood Count 10.65 K/uL (4.8-10.8)
[2019-07-28 19:10] LABS: Prothrombin Time 10.7 Seconds (9.0-12.0)
[2019-07-28 19:31] LABS: BUN Creatinine Ratio 11.7 (10-20); Blood Urea Nitrogen 29 mg/dl (7-18); Calcium 8.7 mg/dl (8.5-10.1); Carbon Dioxide 36 mmol/L (21-32); Chloride 97 mmol/L (98-107); Est GFR (African American) 32.2; Est GFR (Non-African American) 27.8; Glucose 178 mg/dl (70-99); Potassium 3.6 mmol/L (3.5-5.1); Sodium 137 mmol/L (136-145)
[2019-07-28] MEDS ORDERED: cefTRIAXone SODIUM 2,000 MG/70 ML BAG IV STA (19:44)
--- NOTE | 2019-07-28 20:32 | Ultrasound Report ---
ULTRASOUND LEFT LOWER EXTREMITY VENOUS CLINICAL HISTORY: Left leg pain. COMPARISON STUDY: Bilateral lower extremity venous ultrasound dated 08/22/2016. TECHNIQUE: Real-time, grayscale, and color Doppler sonography of the deep veins of the left lower ext remity was performed from the inguinal crease to the calf. Compression and augmentation were utilized . FINDINGS: There is no sonographic evidence of deep venous thrombosis identified in the left lower ext remity. The common femoral, superficial femoral, and popliteal veins are patent and normally compress ible. The greater saphenous vein and the profunda femoris vein at the junction with the common femora l vein are clear. The visualized calf veins are patent. IMPRESSION: There is no sonographic evidence of deep venous thrombosis identified in the left lower e xtremity. ACT 112: Negative or not required by law. Electronically signed by: Gil Asencio M.D. 07/28/2019 8:31 PM
[2019-07-28] MEDS ORDERED: ONDANSETRON INJ 2 MG/ML 2 ML VIAL IV PRN (23:39)
[2019-07-28] MEDS ORDERED: POLYETHYLENE (MIRALAX) 17 GM PACK PO PRN (23:39)
--- NOTE | 2019-07-28 23:58 | History and Physical Report ---
DATE OF ADMISSION: 07/28/2019 CHIEF COMPLAINT: Left lower extremity cellulitis. HISTORY OF PRESENT ILLNESS: This is a 54-year-old male with past medical history significant for hyperlipidemia, hypertriglyceridemia, organic sleep apnea, essential hypotension, history of DVT and PE in 2017, was on Coumadin for 1 year, morbid obesity, presents with left lower extremity erythema starting over a couple of days. He has some redness in the left calf and the zurita region. He had a history of DVT in the past, so he was worried and came to the ER. Deep venous thrombosis was negative. The patient says he has some mild discomfort but he is able to walk on the legs. Denies any fever, chills, no other complaints. Denies any chest pain, no shortness of breath, no cough, no fever, no chills, no headache, no blurred vision, no earache, no runny nose, no sore throat, no loss of sense of smell or taste. No nausea, no abdominal pain. Normal bowel and bladder movements. No blood in the stools, no hematuria. Currently resting comfortably. Blood pressure was somewhat on the lower side. ALLERGIES: PENICILLINS, IV CONTRAST. PAST MEDICAL HISTORY: As mentioned above. PAST SURGICAL HISTORY: IVC filter placed in 2016 and removed in 12/2016, palate uvula surgery for sleep apnea, tonsillectomy, adenoidectomy, left eye repair of scleral lesion. MEDICATIONS: The patient is on atorvastatin 40 mg p.o. daily, lisinopril 20 mg p.o. daily, fenofibrate micronized 134 mg daily, chlorthalidone 25 mg p.o. daily, aspirin enteric coated 81 mg p.o. daily. FAMILY HISTORY: Significant for mother has heart disease. Father has hypercholesterolemia. SOCIAL HISTORY: No smoking, alcohol rarely. No drug use. Lives with his parents. REVIEW OF SYMPTOMS: As per HPI. Rest of review of symptoms negative. SUBJECTIVE: The patient is morbidly obese, not in acute distress. VITAL SIGNS: Temperature 36.8, pulse 80, respiratory rate 20, blood pressure 123/64, oxygen 97% on room air. HEENT: No pallor, no icterus. Extraocular muscles intact. NECK: No JVD, no neck masses. CARDIOVASCULAR: S1, S2 heard, regular rate and rhythm, no murmur, no gallop. RESPIRATORY SYSTEM: Normal AP diameter. No accessory muscle use. No wheezing, no crackles. ABDOMEN: Soft, bowel sounds present, nontender. No distention. CENTRAL NERVOUS SYSTEM: Cranial nerves II-XII grossly intact. Nonfocal. EXTREMITIES: Left lower extremity erythema seen in the zurita and calf region and warm to palpation. LABORATORY DATA: WBC 16.6, hemoglobin 15.2, hematocrit 46.1, platelets 171. PT 10.7, INR 1, APTT 27. Sodium 137, potassium 3.6, chloride 97, bicarbonate 36, BUN 29, creatinine 2.4, serum glucose 178. Lactate 1.9, calcium 8.7. Venous Doppler study, no DVT. ASSESSMENT AND PLAN: This is a 54-year-old male who presents with left lower extremity cellulitis. 1. Left lower extremity cellulitis: Received IV Rocephin in the ER which we will continue and follow the response. Follow the cultures. Monitor in the medical floor. 2. Hypotension: Blood pressure in the borderline, fluid bolus in the ER, continue with IV normal saline 125 mL per hour. Hold his lisinopril and chlorthalidone. We will monitor the blood pressure. Lactic acid normal, not in sepsis. 3. Acute kidney injury: Baseline creatinine around 1.2 on 11/2018 in outpatient labs, currently creatinine of 2.4. Holding the lisinopril and chlorthalidone. Getting fluids. Follow the labs in the a.m. 4. Hyperglycemia, glucose 178. Will follow the HbA1c level. Place him on diabetic diet. 5. Hypertension, currently hypotensive. Hold his chlorthalidone and lisinopril. 6. History of hypertriglyceridemia and hyperlipidemia: Continue his atorvastatin and fenofibrate. 7. History of deep venous thrombosis and pulmonary embolism in 2017. Was on Coumadin for 1 year. Currently,Doppler is negative. 8. Morbid obesity and history of organic sleep apnea status post plate uvula surgery and he says he is doing fine with sleeping. Ordered nocturnal pulse ox study, needs counseling for his obesity. 9. Deep venous thrombosis prophylaxis, heparin subQ. DISPOSITION: Admit to medical floor. Expect to discharge home and follow with family doctor. Level 1 full code. MTDD
[2019-07-29] MEDS: SODIUM CHLORIDE 0.9% 1000ML 1,000 ML IV SCH ×4 (00:19→23:14)
[2019-07-29 05:44] LABS: Basophils # (auto) 0.01 K/uL (0-0.2); Basophils % (auto) 0.1 %; Eosinophils # (auto) 0.13 K/uL (0-0.5); Eosinophils % (auto) 1.4 %; Hematocrit (blood only) 43.4 % (42-52); Hemoglobin 13.9 g/dL (14.0-18.0); Immature Granulocytes # (auto) 0.03 K/uL (0.00-0.02); Immature Granulocytes % (auto) 0.3 %; Lymphocytes # (auto) 1.54 K/uL (1.2-3.4); Lymphocytes % (auto) 16.6 %; Mean Corpuscular Hemoglobin 29.5 pg (25-34); Mean Corpuscular Volume 92.1 fL (80-100); Mean Platelet Volume 10.6 fL (7.4-10.4); Monocytes % (auto) 6.5 %; Neutrophils # (auto) 6.99 K/uL (1.4-6.5); Neutrophils % (auto) 75.1 %; Platelet Count 166 K/uL (130-400); RDW Coefficient of Variation 15.3 % (11.5-14.5); RDW Standard Deviation 51.5 fL (36.4-46.3); Red Blood Count 4.71 M/uL (4.7-6.1)
[2019-07-29] MEDS: HEPARIN SOD 5,000 UNIT/0.5 ML VIAL SQ SCH ×3 (06:03→21:36)
[2019-07-29 06:16] LABS: BUN Creatinine Ratio 16.7 (10-20); Calcium 8.4 mg/dl (8.5-10.1); Creatinine Clr Calc Pharmacy 56.8 ml/min; Est GFR (African American) 40.5; Magnesium 2.3 mg/dl (1.8-2.4); Potassium 3.6 mmol/L (3.5-5.1)
[2019-07-29 06:50] LABS: Appearance Urine Turbid (Clear); Bacteria Urine Automated Negative (Negative); Blood Urine 3+ (Negative); Color Urine Dark Yellow; Epithelial Cell Urine Auto >30 /lpf (0-5); Glucose Urine UA 1+ (Negative); Ketones Urine Trace (Negative); Leukocyte Esterase Urine Trace (Negative); Nitrite Urine Positive (Negative); Protein Urine 2+ (Negative); Specific Gravity Urine 1.028 (1.000-1.030); Urobilinogen Urine Negative (Negative)
[2019-07-29 06:52] LABS: Estimated Average Glucose 166 mg/dl; Hemoglobin A1C 7.4 % (4.5-5.6)
[2019-07-29 07:05] LABS: Bilirubin Urine Negative (Negative); Ictotest Urine Negative (Negative)
[2019-07-29 07:13] LABS: Cast Urine Automated >30 /lpf (0-5)
[2019-07-29 07:14] LABS: Granular Casts Urine >30 /lpf (0)
[2019-07-29] MEDS: ASPIRIN 81 MG ECTAB PO SCH (08:37)
[2019-07-29] MEDS: FENOFIBRATE NANOCRYSTALLIZED 145 MG TABLET PO SCH (08:37)
--- NOTE | 2019-07-29 16:25 | Hospitalist Progress Note ---
Date of Service July 29, 2019 Assessment & Plan (1) Cellulitis of left lower extremity: Admitted with erythema and pain involving left lower extremity Noted to have tearing cellulitis involving the left leg No increase in white count no fever blood culture is pending Has been on intravenous ceftriaxone and cellulitis has been improved Continue current antibiotic Acute continue with Keflex as an outpatient for about 14 days in total (2) Acute kidney injury: Secondary to dehydration with creatinine of 2.49 on admit We will continue with intravenous fluid Monitor PRP Advised to drink more fluid (3) Morbid obesity: (4) Dyslipidemia: Continue statin (5) Type 2 diabetes mellitus: Hemoglobin A1c was noted to be 7.4 He has type 2 diabetes We will start diabetic diet and diabetic education Sliding scale insulin coverage while in hospital Will not put any medications as of now DVT prophylaxis Subcu heparin Admission and Anticipated Discharge Date Admission Date: July 28, 2019 Subjective The patient was seen and examined in medical floor He was admitted with left lower extremity cellulitis Has been feeling better since admission Denies any fever and/or chills Review of Systems Review of Systems: All systems reviewed and are unremarkable except as noted below Musculoskeletal: No acute arthritis involving any joints Integumentary: + erythema (Involving left leg) Physical Exam Physical Exam: Lying in bed comfortably Constitutional: well developed, well nourished and + obese; no acute distress and not ill appearing Eyes: PERRL, conjunctivae normal, anicteric sclerae ENMT: external ear and nose normal, oropharynx normal Neck: trachea midline, no thyromegaly Respiratory: normal respiratory effort, lungs clear to auscultation Cardiovascular: Rate/Rhythm: regular rate and regular rhythm Heart Sounds: no murmur Gastrointestinal (Abdomen): Inspection/Auscultation: abdomen normal to inspection and normal bowel sounds; abdomen not distended Percussion/Palpation: abdomen soft; abdomen nontender Musculoskeletal: Erythema and tenderness with pain involving almost whole adenopathy Neurologic: moves all extremities; no focal motor deficits Lymphatic: no cervical or axillary lymphadenopathy Results & Data Results & Data ([facility]) Vital Signs (Past 12 Hours) Vital Signs Temp Pulse Resp BP Pulse Ox 07/29/19 15:18 37.2 C 66 16 110/69 95 07/29/19 07:14 36.3 C L 64 16 91/58 L 91 Laboratory Results Short CBC 07/28/19 07/29/19 Range/Units 18:39 05:14 WBC 10.65 9.30 (4.8-10.8) K/uL Hgb 15.2 13.9 L (14.0-18.0) g/dL Hct 46.1 43.4 (42-52) % Plt Count 171 166 (130-400) K/uL BMP 07/28/19 07/29/19 18:39 05:14 Sodium 137 139 Potassium 3.6 3.6 Chloride 97 L 101 Carbon Dioxide 36 H 34 H BUN 29 H 34 H Creatinine 2.49 H 2.06 H D Glucose 178 H 148 H Calcium 8.7 8.4 L Urine 07/29/19 Range/Units 06:31 Urine Color Dark Yellow Urine Appearance Turbid A (Clear) Urine pH 5.0 (4.5-7.5) Ur Specific Antonito 1.028 (1.000-1.030) Urine Protein 2+ H (Negative) Urine Glucose (UA) 1+ H (Negative) Medications Administered Current Inpatient Medications Acetaminophen (Tylenol) 650 mg PO Q4H PRN PRN Reason: pain/fever Stop: 08/27/19 23:38 Aspirin (Ecotrin Ectab) 81 mg PO DAILY [facility] Stop: 08/28/19 08:59 Last Admin: 07/29/19 08:37 Dose: 81 mg Documented by: Atorvastatin Calcium (Lipitor) 40 mg PO QPM [facility] Stop: 08/28/19 20:59 Fenofibrate (Tricor) 145 mg PO DAILY [facility] Stop: 08/28/19 08:59 Last Admin: 07/29/19 08:37 Dose: 145 mg Documented by: Heparin Sodium (Porcine) (Heparin Sodium (Porcine)) 5,000 units SQ Q8 [facility] Stop: 08/28/19 05:59 Last Admin: 07/29/19 14:21 Dose: 5,000 units Documented by: Ceftriaxone Sodium 2,000 mg/ (Dextrose) 70 mls @ 100 mls/hr IV Q24H [facility]; Protocol Stop: 08/04/19 19:59 Sodium Chloride (Nss 1000ml) 1,000 mls @ 125 mls/hr IV .Q8H [facility] Stop: 08/27/19 23:38 Last Admin: 07/29/19 14:57 Dose: 125 mls/hr Documented by: Insulin Aspart (Novolog Flexpen) 0 units SC ACHS [facility] Stop: 08/28/19 16:29 Ondansetron HCl (Zofran) 4 mg IV Q6H PRN PRN Reason: Nausea Stop: 08/27/19 23:38 Polyethylene Glycol (Miralax Powder Packet) 17 gm PO DAILY PRN PRN Reason: Constipation Stop: 08/27/19 23:38
[2019-07-29] MEDS ORDERED: GLUCOSE 40% GEL 15 GM TUBE PO PRN (17:00)
[2019-07-29] MEDS ORDERED: CARBOHYDRATES FOR HYPOGLYCEMIA PO PRN (17:00)
[2019-07-29] MEDS ORDERED: GLUCAGON FOR INJ 1 MG VIAL IM PRN (17:00)
[2019-07-29] MEDS ORDERED: DEXTROSE 50% 50 ML SYRINGE IV PRN (17:00)
[2019-07-29] MEDS ORDERED: GLUCOSE 10 TABS/TUBE PO PRN (17:00)
[2019-07-29] MEDS: INSULIN ASPART 100 UNITS/ML 3 ML PEN SC SCH ×2 (18:25→21:12)
[2019-07-29] MEDS: cefTRIAXone SODIUM 2,000 MG in DEXTROSE 5% 50 ML IV SCH (19:38)
[2019-07-29] MEDS ORDERED: ATORVASTATIN 40 MG TAB PO SCH (21:00)
[2019-07-29] MEDS ORDERED: HEPARIN SOD 5,000 UNIT/0.5 ML VIAL SQ SCH (21:00)
[2019-07-29] MEDS: ACETAMINOPHEN 325 MG TAB PO PRN (21:34)
[2019-07-30] MEDS: HEPARIN SOD 5,000 UNIT/0.5 ML VIAL SQ SCH ×2 (05:08→13:03)
[2019-07-30 05:14] LABS: Basophils # (auto) 0.02 K/uL (0-0.2); Basophils % (auto) 0.2 %; Eosinophils # (auto) 0.11 K/uL (0-0.5); Eosinophils % (auto) 1.3 %; Hematocrit (blood only) 42.2 % (42-52); Hemoglobin 13.6 g/dL (14.0-18.0); Immature Granulocytes # (auto) 0.06 K/uL (0.00-0.02); Immature Granulocytes % (auto) 0.7 %; Lymphocytes # (auto) 1.35 K/uL (1.2-3.4); Lymphocytes % (auto) 16.1 %; Mean Corpuscular Hemoglobin 29.2 pg (25-34); Mean Corpuscular Hgb Conc 32.2 g/dL (32-36); Mean Corpuscular Volume 90.8 fL (80-100); Mean Platelet Volume 10.6 fL (7.4-10.4); Monocytes # (auto) 0.95 K/uL (0.11-0.59); Monocytes % (auto) 11.3 %; Neutrophils # (auto) 5.89 K/uL (1.4-6.5); Neutrophils % (auto) 70.4 %; Platelet Count 164 K/uL (130-400); RDW Coefficient of Variation 15.2 % (11.5-14.5); RDW Standard Deviation 50.3 fL (36.4-46.3); Red Blood Count 4.65 M/uL (4.7-6.1); White Blood Count 8.38 K/uL (4.8-10.8)
[2019-07-30 06:16] LABS: BUN Creatinine Ratio 18.6 (10-20); Calcium 8.4 mg/dl (8.5-10.1); Creatinine Clr Calc Pharmacy 103.6 ml/min; Est GFR (African American) 83.8; Est GFR (Non-African American) 72.3; Potassium 3.4 mmol/L (3.5-5.1)
[2019-07-30] MEDS: SODIUM CHLORIDE 0.9% 1000ML 1,000 ML IV SCH (07:24)
[2019-07-30] MEDS: ACETAMINOPHEN 325 MG TAB PO PRN (07:27)
[2019-07-30] MEDS: ASPIRIN 81 MG ECTAB PO SCH (08:06)
[2019-07-30] MEDS: FENOFIBRATE NANOCRYSTALLIZED 145 MG TABLET PO SCH (08:06)
[2019-07-30] MEDS: INSULIN ASPART 100 UNITS/ML 3 ML PEN SC SCH ×2 (09:16→13:03)
[2019-07-30] MEDS ORDERED: POTASSIUM CHLORIDE 20 MEQ TABCR PO STA (11:40)
--- NOTE | 2019-07-30 14:22 | Hospitalist Progress Note ---
Date of Service July 30, 2019 Assessment & Plan (1) Cellulitis of left lower extremity: Admitted with erythema and pain involving left lower extremity Noted to have cellulitis involving the left leg No increase in white count no fever blood culture is pending Has been on intravenous ceftriaxone and cellulitis has improved Continue current antibiotic today Plan to discharge on Keflex as an outpatient for 10 more days Follow-up as outpatient (2) Acute kidney injury: Secondary to dehydration with creatinine of 2.49 on admission Received intravenous fluid Now resolved, creatinine 1.13 (3) Morbid obesity: Patient counseled on weight management and a new diagnosis of diabetes Will need to further follow-up as outpatient (4) Dyslipidemia: Continue statin (5) Type 2 diabetes mellitus: Hemoglobin A1c was noted to be 7.4% He has type 2 diabetes -new diagnosis Started diabetic diet and provided diabetic education Sliding scale insulin coverage while in hospital Will not put any medications as of now DVT prophylaxis: Subcu heparin Admission and Anticipated Discharge Date Admission Date: July 28, 2019 Subjective Patient is lying in bed, in no acute distress. No acute events overnight. Patient says that he already feels much better and that his leg feels much better. He said that previously his leg would be very tender to touch, now it is not bothering him very much and he is able to walk. Reports that the redness decreased substantially. He is inquiring about going home. Denies any fevers, chills, chest pain, shortness of breath, abdominal pain, nausea or vomiting. Nocturnal pulse ox test positive, patient requires 2 L of oxygen at night, case management aware. Review of Systems Review of Systems: All systems reviewed & are unremarkable except as noted in HPI & below Constitutional: no fever and no chills Respiratory: no cough and no dyspnea Cardiovascular: no chest pain and no palpitations Gastrointestinal: no abdominal pain, no nausea and no vomiting Integumentary: + erythema (Involving left leg) Physical Exam Physical Exam: Physical Exam: Obese male, lying in bed comfortably, in no acute distress Constitutional: well developed, well nourished and + obese; no acute distress and not ill appearing Eyes: PERRL, EOMI, conjunctivae normal, anicteric sclerae ENMT: external ear and nose normal, oropharynx normal Neck: trachea midline, no thyromegaly Respiratory: normal respiratory effort, lungs clear to auscultation Cardiovascular: Rate/Rhythm: regular rate and regular rhythm Heart Sounds: no murmur Gastrointestinal (Abdomen): Inspection/Auscultation: abdomen normal to inspection, obese, normal bowel sounds; abdomen not distended Percussion/Palpation: abdomen soft; abdomen nontender Musculoskeletal: LLE Erythema -improved, previously tender to touch, that is also improved Neurologic: Alert and oriented x3, no facial symmetry, answers questions appropriately, moves all extremities; no focal motor deficits Results & Data Results & Data ([facility]) Vital Signs (Past 12 Hours) Vital Signs Temp Pulse Pulse Pulse Pulse Pulse Resp 07/30/19 12:55 84 87 65 07/30/19 12:40 07/30/19 07:33 36.5 C 66 16 07/30/19 02:32 60 58 L Resp Resp Resp BP Pulse Ox Pulse Ox Pulse Ox 07/30/19 12:55 20 20 16 94 07/30/19 12:40 95 07/30/19 07:33 127/88 97 07/30/19 02:32 92 Pulse Ox Pulse Ox 07/30/19 12:55 94 95 07/30/19 12:40 07/30/19 07:33 07/30/19 02:32 84 L Laboratory Results 07/30/19 07/30/19 07/30/19 Range/Units 11:56 08:11 05:00 WBC (4.8-10.8) K/uL RBC (4.7-6.1) M/uL Hgb (14.0-18.0) g/dL Hct (42-52) % MCV (80-100) fL MCH (25-34) pg MCHC (32-36) g/dL RDW Std Deviation (36.4-46.3) fL RDW Coeff of Sonali (11.5-14.5) % Plt Count (130-400) K/uL MPV (7.4-10.4) fL Immature Gran % (Auto) % Neut % (Auto) % Lymph % (Auto) % [place] % (Auto) % Eos % (Auto) % Baso % (Auto) % Immature Gran # (Auto) (0.00-0.02) K/uL Neut # (Auto) (1.4-6.5) K/uL Lymph # (Auto) (1.2-3.4) K/uL [place] # (Auto) (0.11-0.59) K/uL Eos # (Auto) (0-0.5) K/uL Baso # (Auto) (0-0.2) K/uL Sodium 141 (136-145) mmol/L Potassium 3.4 L (3.5-5.1) mmol/L Chloride 101 (98-107) mmol/L Carbon Dioxide 35 H (21-32) mmol/L Anion Gap 5.0 (3-11) BUN 21 H (7-18) mg/dl Creatinine 1.13 D (0.6-1.4) mg/dl Est Cr Clr Drug Dosing 103.6 ml/min Est GFR ( Amer) 83.8 Est GFR (Non-Af Amer) 72.3 BUN/Creatinine Ratio 18.6 (10-20) Glucose 153 H (70-99) mg/dl POC Glucose 158 H 145 H (70-99) mg/dl Calcium 8.4 L (8.5-10.1) mg/dl 07/30/19 07/29/19 07/29/19 Range/Units 05:00 20:59 16:53 WBC 8.38 (4.8-10.8) K/uL RBC 4.65 L (4.7-6.1) M/uL Hgb 13.6 L (14.0-18.0) g/dL Hct 42.2 (42-52) % MCV 90.8 (80-100) fL MCH 29.2 (25-34) pg MCHC 32.2 (32-36) g/dL RDW Std Deviation 50.3 H (36.4-46.3) fL RDW Coeff of Sonali 15.2 H (11.5-14.5) % Plt Count 164 (130-400) K/uL MPV 10.6 H (7.4-10.4) fL Immature Gran % (Auto) 0.7 % Neut % (Auto) 70.4 % Lymph % (Auto) 16.1 % [place] % (Auto) 11.3 % Eos % (Auto) 1.3 % Baso % (Auto) 0.2 % Immature Gran # (Auto) 0.06 H (0.00-0.02) K/uL Neut # (Auto) 5.89 (1.4-6.5) K/uL Lymph # (Auto) 1.35 (1.2-3.4) K/uL [place] # (Auto) 0.95 H (0.11-0.59) K/uL Eos # (Auto) 0.11 (0-0.5) K/uL Baso # (Auto) 0.02 (0-0.2) K/uL Sodium (136-145) mmol/L Potassium (3.5-5.1) mmol/L Chloride (98-107) mmol/L Carbon Dioxide (21-32) mmol/L Anion Gap (3-11) BUN (7-18) mg/dl Creatinine (0.6-1.4) mg/dl Est Cr Clr Drug Dosing ml/min Est GFR ( Amer) Est GFR (Non-Af Amer) BUN/Creatinine Ratio (10-20) Glucose (70-99) mg/dl POC Glucose 176 H 155 H (70-99) mg/dl Calcium (8.5-10.1) mg/dl Medications Administered Current Inpatient Medications Acetaminophen (Tylenol) 650 mg PO Q4H PRN PRN Reason: pain/fever Stop: 08/27/19 23:38 Last Admin: 07/30/19 07:27 Dose: 650 mg Documented by: Aspirin (Ecotrin Ectab) 81 mg PO DAILY [facility] Stop: 08/28/19 08:59 Last Admin: 07/30/19 08:06 Dose: 81 mg Documented by: Atorvastatin Calcium (Lipitor) 40 mg PO QPM [facility] Stop: 08/28/19 20:59 Last Admin: 07/29/19 21:09 Dose: 40 mg Documented by: Dextrose (Dextrose 50%) 25 - 50 ml IV UD PRN; Protocol PRN Reason: Hypoglycemia Protocol Stop: 08/28/19 16:59 Fenofibrate (Tricor) 145 mg PO DAILY [facility] Stop: 08/28/19 08:59 Last Admin: 07/30/19 08:06 Dose: 145 mg Documented by: Glucagon (Glucagen) 1 mg IM UD PRN; Protocol PRN Reason: Hypoglycemia Protocol Stop: 08/28/19 16:59 Glucose (Glucose 40%) 15 - 30 gm PO UD PRN; Protocol PRN Reason: Hypoglycemia Protocol Stop: 08/28/19 16:59 Glucose (Dex4 Glucose) 4 - 8 tabs PO UD PRN; Protocol PRN Reason: Hypoglycemia Protocol Stop: 08/28/19 16:59 Heparin Sodium (Porcine) (Heparin Sodium (Porcine)) 5,000 units SQ Q8 [facility] Stop: 08/28/19 05:59 Last Admin: 07/30/19 13:03 Dose: 5,000 units Documented by: Ceftriaxone Sodium 2,000 mg/ (Dextrose) 70 mls @ 100 mls/hr IV Q24H [facility]; Protocol Stop: 08/04/19 19:59 Last Infusion: 07/29/19 20:33 Dose: Infused Documented by: Sodium Chloride (Nss 1000ml) 1,000 mls @ 125 mls/hr IV .Q8H [facility] Stop: 08/27/19 23:38 Last Admin: 07/30/19 07:24 Dose: 125 mls/hr Documented by: Insulin Aspart (Novolog Flexpen) 0 units SC ACHS [facility] Stop: 08/28/19 16:29 Last Admin: 07/30/19 13:03 Dose: 5 units Documented by: Miscellaneous (Carbohydrates For Hypoglycemia) 15 - 30 gm PO UD PRN PRN Reason: Hypoglycemia Treatment Stop: 08/28/19 16:59 Ondansetron HCl (Zofran) 4 mg IV Q6H PRN PRN Reason: Nausea Stop: 08/27/19 23:38 Polyethylene Glycol (Miralax Powder Packet) 17 gm PO DAILY PRN PRN Reason: Constipation Stop: 08/27/19 23:38
[2019-07-30] MEDS: cefTRIAXone SODIUM 2,000 MG in DEXTROSE 5% 50 ML IV SCH (14:26)
--- NOTE | 2019-07-30 14:27 | Discharge Summary ---
Date of Service July 30, 2019 Admission HPI Per Admitting Provider This is a 54-year-old male with past medical history significant for hyperlipidemia, hypertriglyceridemia, organic sleep apnea, essential hypotension, history of DVT and PE in 2017, was on Coumadin for 1 year, morbid obesity, presents with left lower extremity erythema starting over a couple of days. He has some redness in the left calf and the zurita region. He had a history of DVT in the past, so he was worried and came to the ER. Deep venous thrombosis was negative. The patient says he has some mild discomfort but he is able to walk on the legs. Denies any fever, chills, no other complaints. Denies any chest pain, no shortness of breath, no cough, no fever, no chills, no headache, no blurred vision, no earache, no runny nose, no sore throat, no loss of sense of smell or taste. No nausea, no abdominal pain. Normal bowel and bladder movements. No blood in the stools, no hematuria. Currently resting comfortably. Blood pressure was somewhat on the lower side. Admission Exam Per Admitting Provider SUBJECTIVE: The patient is morbidly obese, not in acute distress. VITAL SIGNS: Temperature 36.8, pulse 80, respiratory rate 20, blood pressure 123/64, oxygen 97% on room air. HEENT: No pallor, no icterus. Extraocular muscles intact. NECK: No JVD, no neck masses. CARDIOVASCULAR: S1, S2 heard, regular rate and rhythm, no murmur, no gallop. RESPIRATORY SYSTEM: Normal AP diameter. No accessory muscle use. No wheezing, no crackles. ABDOMEN: Soft, bowel sounds present, nontender. No distention. CENTRAL NERVOUS SYSTEM: Cranial nerves II-XII grossly intact. Nonfocal. EXTREMITIES: Left lower extremity erythema seen in the zurita and calf region and warm to palpation. Principal Diagnosis Left lower extremity cellulitis Diabetes mellitus type 2 - new diagnosis Discharge Exam Physical Exam: Obese male, lying in bed comfortably, in no acute distress Constitutional: well developed, well nourished and + obese; no acute distress and not ill appearing Eyes: PERRL, EOMI, conjunctivae normal, anicteric sclerae ENMT: external ear and nose normal, oropharynx normal Neck: trachea midline, no thyromegaly Respiratory: normal respiratory effort, lungs clear to auscultation Cardiovascular: Rate/Rhythm: regular rate and regular rhythm Heart Sounds: no murmur Gastrointestinal (Abdomen): Inspection/Auscultation: abdomen normal to inspection, obese, normal bowel sounds; abdomen not distended Percus sharonda/Palpation: abdomen soft; abdomen nontender Musculoskeletal: LLE Erythema -improved, previously tender to touch, that is also improved Neurologic: Alert and oriented x3, no facial symmetry, answers questions appropriately, moves all extremities; no focal motor deficits Discharge Data Allergies Allergy/AdvReac Type Severity Reaction Status Date / Time Penicillins Allergy Mild Hives Verified 07/28/19 21:35 IV CONTRAST DYE AdvReac Intermediate PASSED OUT Uncoded 07/28/19 21:35 Consultations 07/28/19 20:56 ED Decision to Admit Stat 07/28/19 23:39 Consult Case Management - Discharge Planning Routine Ordered Studies 07/28/19 17:16 US venous doppler LE Stat IMPRESSION: There is no sonographic evidence of deep venous thrombosis identified in the left lower extremity. Hospital Course (1) Cellulitis of left lower extremity: Admitted with erythema and pain involving left lower extremity Noted to have cellulitis involving the left leg No increase in white count no fever blood culture is pending Has been on intravenous ceftriaxone and cellulitis has improved Continue current antibiotic today Plan to discharge on Keflex as an outpatient for 10 more days Follow-up as outpatient (2) Acute kidney injury: Secondary to dehydration with creatinine of 2.49 on admission Received intravenous fluid Now resolved, creatinine 1.13 (3) Morbid obesity: Patient counseled on weight management and a new diagnosis of diabetes Will need to further follow-up as outpatient (4) Dyslipidemia: Continue statin (5) Type 2 diabetes mellitus: Hemoglobin A1c was noted to be 7.4% He has type 2 diabetes -new diagnosis Started diabetic diet and provided diabetic education Sliding scale insulin coverage while in hospital Will not start any new medications as of now Patient will need follow-up as outpatient with primary care provider Nocturnal hypoxia Nocturnal pulse ox test ordered, patient requires 2 L of oxygen at night Case management aware Total Time Total Time Spent Total Time Spent (In Minutes): 40 Total Time Includes: Examination of the Patient, Discharge Planning, Medication Reconciliation and Communication With Other Providers Discharge Plan Discharge Items Patient Disposition: Home - Home Health Services Reason For Visit: CELLULITIS Discharge Diagnosis: Left lower extremity cellulitis Diabetes mellitus type 2 - new diagnosis Activity: Per Instructions section Non-emergency contact: Primary Care Provider Call non-emergency contact if: you have any medication questions and your symptoms worsen Follow-up/Referrals: Estevan Felix MD [Primary Care Provider] - 08/04/19 4:40 pm (08/04/2019 4:40 PM Provider Estevan Felix MD Department Internal Medicine [facility] ) Diet: Carb Consistent or DM2 and Heart Healthy Addtl Attending Provider Instructions: Follow-up with primary care provider within 1 week. Your appointment was scheduled for August 03, at 4:40 PM. Results of blood cultures will be available at that time. Make sure you discuss them with your doctor. Take antibiotics, Keflex, as prescribed. Do not take lisinopril or chlorthalidone tomorrow. Then start taking lisinopril only on Sunday. Discuss further with your primary doctor if/when you should restart taking chlorthalidone as well. You will also need to closely follow-up with your primary care doctor regarding your new diagnosis of diabetes. Use oxygen, 2 L/min at night. Pending Studies at Discharge: Yes Studies:: Blood culture-pending Stand-Alone Forms: My [facility] Vers[facility] [employer] Companion, Smoking Cessation Medications and DC Order Prescriptions: New cephalexin [Keflex] 500 mg capsule 500 mg PO QID 10 Days Qty: 40 RF: 0 Continued atorvastatin [Lipitor] 40 mg tablet 40 mg PO QPM RF: 0 lisinopril 20 mg tablet 20 mg PO DAILY RF: 0 aspirin [Aspir-81] 81 mg Tablet,Delayed Release (Dr/Ec) 81 mg PO DAILY RF: 0 fenofibrate micronized 134 mg capsule 134 mg PO DAILY RF: 0 Discontinued chlorthalidone 25 mg tablet 25 mg PO DAILY RF: 0 Discharge Orders: Discharge Order (Routine); Ordered 07/30/19 Ordered By: Hector Cardenas/Other Patient Handouts: Discharge Instructions for Cellulitis, Do You Have Diabetes?, A1C Admission Data Admit Date/Time: 07/28/19 21:42 Attending Provider: Hector Ortez Admit Provider: Florin Cardozo Primary Care Provider: Estevan Felix Other Providers: Florin Cardozo ; Sara Menard
== END 2019-07-30 16:56 | disposition home health service (06) ==
LOC: ED 15:27 → 3N 21:42 → SUATTDRO 21:42 → INTOOBSV 21:42 → 3N 23:21